=== PATIENT | female | born 1945 | race Caucasian/White ===

== ENCOUNTER 2018-11-18 16:59 | Emergency (ER) | payer MEDICARE ==
[~2018-11-18] VITALS: Ht 152.4 cm; Wt 48.6 kg
[~2018-11-18 16:59] MED LIST: ASPI-611 PO; CA C1TAB86 PO; CHOL200013 PO; GLIP5TAB13 PO; HYDR-4353 PO; LANTUS SQ; LISI-604 PO; METF500T7 PO; METO25TA6 PO; SIMV10TA6 PO
[2018-11-18] MEDS ORDERED: normal saline 1000ML IV soln IVB ONE ×2 (17:40)
[2018-11-18] MEDS ORDERED: insulin Lispro (HumaLOG) vial - multi-dose SQ SCH (17:40)
[2018-11-18 18:09] LABS: CLARITY,URINE SLIGHTLY CLOUDY (Clear); COLOR,URINE STRAW (Yellow); GLUCOSE, URINE >=1000 mg/dl (Neg); KETONES,URINE 15 mg/dl (Neg); LEUKOCYTE ESTERASE ,URINE NEGATIVE (Neg); NITRITES, URINE NEGATIVE (Neg); OCCULT BLOOD,URINE TRACE-INTACT (Neg); PH,URINE 5.5 (4.8-8.0); PROTEIN,URINE TRACE mg/dl (Neg); UROBILINOGEN,URINE 0.2 E.U/dL (0.2-1.0)
[2018-11-18 18:12] LABS: BASOPHILS # (AUTO) 0.1 X10'3 (0-0.2); BASOPHILS % (AUTO) 0.9 % (0-1); EOSINOPHILS # (AUTO) 0.1 X10'3 (0-0.9); EOSINOPHILS % (AUTO) 1.3 % (0-6); HEMOGLOBIN 13.8 g/dl (12.0-16.0); LYMPHOCYTES # (AUTO) 1.5 X10'3 (1.1-4.8); LYMPHOCYTES % (AUTO) 20.7 % (21-51); MEAN CORPUSCULAR HGB CONC 33.6 % (33.0-36.5); MEAN CORPUSCULAR VOLUME 92.3 FL (78-98); MEAN PLATELET VOLUME 11.3 FL (7.4-10.4); MONOCYTES # (AUTO) 0.5 X10'3 (0-0.9); MONOCYTES % (AUTO) 6.1 % (2-12); NEUTROPHILS # (AUTO) 5.2 X10'3 (1.8-7.7); PLATELET COUNT 310 X10'3 (140-440); RED BLOOD COUNT 4.44 X10'6 (4.20-5.60); WHITE BLOOD COUNT 7.4 X10'3 (4.5-11.0)
[2018-11-18 18:15] LABS: UA COLLECTION TYPE NON-SPECIFIED
[2018-11-18 18:17] LABS: MUCUS STRANDS NONE SEEN /LPF (Neg); SQUAMOUS EPITHELIAL CELL,UR FEW /LPF (FEW); WBC CLUMPS,URINE MANY /HPF (NEGATIVE)
[2018-11-18 18:18] LABS: BACTERIA,URINE 4+ /HPF (Neg); RBC,URINE NONE SEEN /HPF (0-2); WBC,URINE 30-50 /HPF (0-4)
[2018-11-18 18:29] LABS: ALANINE AMINOTRANSFERASE 20 U/L (12-78); ALBUMIN 4.6 G/DL (3.4-5.0); ALKALINE PHOSPHATASE 95 IU/L (46-116); ANION GAP 19 (8-16); ASPARTATE AMINO TRANSFERASE 13 U/L (10-37); BILIRUBIN,TOTAL 0.4 MG/DL (0.1-1.0); BLOOD UREA NITROGEN 33 MG/DL (7-18); BUN/CREATININE RATIO 22.6 (6.6-38.0); CALCIUM 9.6 MG/DL (8.5-10.1); CHLORIDE 90 MMOL/L (99-107); CREATININE 1.46 MG/DL (0.40-0.90); POTASSIUM 4.4 MMOL/L (3.5-5.1); SODIUM 130 MMOL/L (135-145); TOTAL CARBON DIOXIDE 21.5 MMOL/L (24-32); eGFR 35 ML/MIN
[2018-11-18] MEDS ORDERED: CefTRIAXone/D5W-Rocephin 1gm 50 ML IV ONE (18:40)
[2018-11-18 18:48] LABS: GLUCOSE 576 MG/DL (70-104)
[2018-11-18] MEDS ORDERED: CEPH500C5 PO (19:02)
[2018-11-18] MEDS ORDERED: INSU100I5 SQ (19:02)
--- NOTE | 2018-11-18 19:08 | NUR ---
Dr. Carrillo notified of glucometer reading. She states we can give IV abx and discharge her with her insulin as she is not on sliding scale and the 8 units is what she normally takes. She will be instructed to find PCP and closely monitor her blood glucose levels.
[2018-11-18 19:30] VITALS: BP 171/70
== END 2018-11-18 19:42 | disposition home or self-care (01) ==
LOC: ER 17:00
DX: E11.65 Type 2 diabetes mellitus with hyperglycemia (principal); N39.0 Urinary tract infection, site not specified; I25.10 Atherosclerotic heart disease of native coronary artery without angina pectoris; E78.00 Pure hypercholesterolemia, unspecified; I10 Essential (primary) hypertension; Z95.1 Presence of aortocoronary bypass graft; Z87.891 Personal history of nicotine dependence; Z79.82 Long term (current) use of aspirin; Z79.899 Other long term (current) drug therapy; Z79.4 Long term (current) use of insulin
CPT/HCPCS: 36415; 80053; 81001; 82948; 85025; 87077; 87088; 87186; 93005; 96361; 96365; 96372; 99284; J0696; J7030

== ENCOUNTER 2020-06-28 03:29 | Emergency (ER) | payer MEDICARE ==
[~2020-06-28] VITALS: Ht 152.4 cm; Wt 52.4 kg
[~2020-06-28 03:29] MED LIST changes: +INSU100I5 SQ; +METF-900 PO; -METF500T7 PO; -SIMV10TA6 PO; +SIMV10TA98 PO
[2020-06-28 03:32] VITALS: BP 167/66
--- NOTE | 2020-06-28 03:47 | NUR ---
NELLIE, PHONE NUMBER [phone]
[2020-06-28] MEDS ORDERED: loperamide 2mg capsule PO ONE (03:55)
--- NOTE | 2020-06-28 04:35 | NUR ---
Pt , Sravan called and stated that pt has demetia and he was concerned that she was not able to communicate her symptoms. stated that, as well as hyperglycemia, patient has been complaining of pain and difficulty urinating. Urine collected and sent to the lab.
[2020-06-28 04:45] LABS: CLARITY,URINE CLOUDY (Clear); COLOR,URINE YELLOW (Yellow); GLUCOSE, URINE >=1000 mg/dl (Neg); KETONES,URINE 15 mg/dl (Neg); LEUKOCYTE ESTERASE ,URINE SMALL (Neg); NITRITES, URINE NEGATIVE (Neg); OCCULT BLOOD,URINE LARGE (Neg); PH,URINE 5.5 (4.8-8.0); PROTEIN,URINE 100 mg/dl (Neg); UROBILINOGEN,URINE 0.2 E.U/dL (0.2-1.0)
[2020-06-28 04:51] LABS: UA COLLECTION TYPE CLN CATCH MIDSTREAM
[2020-06-28 04:52] LABS: AMORPHOUS URATES 2+; BACTERIA,URINE 1+ /HPF (Neg); MUCUS STRANDS FEW /LPF (Neg); RBC,URINE 20-50 /HPF (0-2); SQUAMOUS EPITHELIAL CELL,UR FEW /LPF (FEW); WBC,URINE 20-30 /HPF (0-4)
[2020-06-28] MEDS ORDERED: CEPH250T PO (05:02)
[2020-06-28] MEDS ORDERED: cephalexin 250mg capsule PO ONE (05:05)
== END 2020-06-28 05:22 | disposition home or self-care (01) ==
LOC: ER 03:30
DX: E11.65 Type 2 diabetes mellitus with hyperglycemia (principal); N39.0 Urinary tract infection, site not specified; R19.7 Diarrhea, unspecified; I25.10 Atherosclerotic heart disease of native coronary artery without angina pectoris; E78.00 Pure hypercholesterolemia, unspecified; I10 Essential (primary) hypertension; F03.90 Unspecified dementia, unspecified severity, without behavioral disturbance, psychotic disturbance, mood disturbance, and anxiety; Z95.1 Presence of aortocoronary bypass graft; Z79.82 Long term (current) use of aspirin; Z79.4 Long term (current) use of insulin; Z79.899 Other long term (current) drug therapy
CPT/HCPCS: 81001; 82948; 87077; 87088; 87186; 99283

== ENCOUNTER 2020-11-17 07:12 | Emergency (ER) | payer MEDICARE ==
[~2020-11-17] VITALS: Ht 152.4 cm; Wt 54.6 kg
[2020-11-17 07:37] VITALS: BP 183/65
[2020-11-17] MEDS ORDERED: TETanus/Pertussis (Acell)/Diphther VAC/PF (Tdap-Adult) 0.5ml syringe IMVAC ONE (08:40)
[2020-11-17] MEDS ORDERED: DOXYCYCLINE 100MG CAPSULE PO STA (08:40)
[2020-11-17] MEDS ORDERED: DOXY100C2 PO (11:05)
== END 2020-11-17 11:39 | disposition home or self-care (01) ==
LOC: ER 07:13
DX: E11.621 Type 2 diabetes mellitus with foot ulcer (principal); L97.529 Non-pressure chronic ulcer of other part of left foot with unspecified severity; I73.9 Peripheral vascular disease, unspecified; I25.10 Atherosclerotic heart disease of native coronary artery without angina pectoris; E78.00 Pure hypercholesterolemia, unspecified; I10 Essential (primary) hypertension; Z87.891 Personal history of nicotine dependence; Z95.1 Presence of aortocoronary bypass graft; Z79.82 Long term (current) use of aspirin; Z79.4 Long term (current) use of insulin; Z79.899 Other long term (current) drug therapy
CPT/HCPCS: 73660; 87070; 87077; 87186; 90471; 90715; 93922; 93926; 99285

== ENCOUNTER 2022-12-29 12:37 | Emergency (ER) | payer MEDICARE ==
[~2022-12-29] VITALS: Ht 152.4 cm; Wt 54.5 kg
[~2022-12-29 12:37] MED LIST changes: -LISI-604 PO; +LISI5TAB22 PO; +LOP25T PO; -METO25TA6 PO
[2022-12-29 13:00] VITALS: BP 173/58
--- NOTE | 2022-12-29 13:00 | NUR ---
PT PEED PRIOR TO ARRIVAL.
[2022-12-29 14:46] LABS: CLARITY,URINE CLOUDY (Clear); COLOR,URINE YELLOW (Yellow); GLUCOSE, URINE >=1000 mg/dl (Neg); KETONES,URINE NEGATIVE (Neg); LEUKOCYTE ESTERASE ,URINE TRACE (Neg); NITRITES, URINE POSITIVE (Neg); OCCULT BLOOD,URINE TRACE-INTACT (Neg); PH,URINE 6.5 (4.8-8.0); PROTEIN,URINE 100 mg/dl (Neg); UROBILINOGEN,URINE 0.2 E.U/dL (0.2-1.0)
[2022-12-29 14:50] LABS: UA COLLECTION TYPE CLN CATCH MIDSTREAM
[2022-12-29 14:55] LABS: BACTERIA,URINE 3+ /HPF (Neg); SQUAMOUS EPITHELIAL CELL,UR MODERATE /LPF (FEW); WBC CLUMPS,URINE MANY /HPF (NEGATIVE); WBC,URINE 20-30 /HPF (0-4)
[2022-12-29 14:56] LABS: RBC,URINE 0-2 /HPF (0-2)
[2022-12-29] MEDS ORDERED: LEVO750T68 PO (15:18)
== END 2022-12-29 15:34 | disposition home or self-care (01) ==
LOC: ER 12:37
DX: N10 Acute pyelonephritis (principal); I10 Essential (primary) hypertension; E78.00 Pure hypercholesterolemia, unspecified; E11.9 Type 2 diabetes mellitus without complications
CPT/HCPCS: 81001; 87077; 87088; 87186; 99283

== ENCOUNTER 2023-01-03 07:23 | Emergency (ER) | payer MEDICARE ==
[~2023-01-03] VITALS: Ht 152.4 cm; Wt 53.0 kg
[~2023-01-03 07:23] MED LIST changes: +LEVO750T68 PO
[2023-01-03 08:09] LABS: CLARITY,URINE CLEAR (Clear); COLOR,URINE YELLOW (Yellow); GLUCOSE, URINE NEGATIVE (Neg); KETONES,URINE NEGATIVE (Neg); LEUKOCYTE ESTERASE ,URINE NEGATIVE (Neg); NITRITES, URINE NEGATIVE (Neg); OCCULT BLOOD,URINE NEGATIVE (Neg); PROTEIN,URINE TRACE mg/dl (Neg); UROBILINOGEN,URINE 0.2 E.U/dL (0.2-1.0)
[2023-01-03 08:11] LABS: UA COLLECTION TYPE CLN CATCH MIDSTREAM
[2023-01-03 08:19] LABS: MUCUS STRANDS NONE SEEN /LPF (Neg); SQUAMOUS EPITHELIAL CELL,UR MODERATE /LPF (FEW); TRANSITIONAL EPI CELLS,URINE FEW /HPF
[2023-01-03 08:21] LABS: BACTERIA,URINE NONE SEEN /HPF (Neg); RBC,URINE 0-2 /HPF (0-2); WBC,URINE 0-4 /HPF (0-4)
[2023-01-03 09:14] LABS: BASOPHILS # (AUTO) 0.1 X10'3 (0-0.2); BASOPHILS % (AUTO) 1.2 % (0-1); EOSINOPHILS # (AUTO) 0.1 X10'3 (0-0.9); HEMATOCRIT 32.8 % (35.0-45.0); HEMOGLOBIN 11.2 g/dl (12.0-16.0); LYMPHOCYTES # (AUTO) 1.3 X10'3 (1.1-4.8); LYMPHOCYTES % (AUTO) 18.6 % (21-51); MEAN CORPUSCULAR HEMOGLOBIN 31.8 PG (27.0-31.0); MEAN CORPUSCULAR HGB CONC 34.2 g/dL (33.0-36.5); MEAN CORPUSCULAR VOLUME 93.2 FL (78-98); MEAN PLATELET VOLUME 10.1 FL (7.4-10.4); MONOCYTES # (AUTO) 0.5 X10'3 (0-0.9); MONOCYTES % (AUTO) 7.5 % (2-12); NEUTROPHILS # (AUTO) 5.1 X10'3 (1.8-7.7); NEUTROPHILS % (AUTO) 70.7 % (42-75); PLATELET COUNT 221 X10'3 (140-440); RED BLOOD COUNT 3.52 X10'6 (4.20-5.60); RED CELL DISTRIBUTION WIDTH 12.7 % (11.5-14.5); WHITE BLOOD COUNT 7.3 X10'3 (4.5-11.0)
[2023-01-03] MEDS ORDERED: iohexol 300mg/ml 100ml inj. ONE (09:17)
[2023-01-03 09:48] LABS: ALANINE AMINOTRANSFERASE 16 U/L (12-78); ALBUMIN/GLOBULIN RATIO 1.1 (1.1-1.5); ALKALINE PHOSPHATASE 63 IU/L (46-116); ASPARTATE AMINO TRANSFERASE 19 U/L (10-37); BILIRUBIN,TOTAL 0.3 MG/DL (0.1-1.0); BLOOD UREA NITROGEN 29 MG/DL (7-18); BUN/CREATININE RATIO 21.8 (6.6-38.0); CALCIUM 8.8 MG/DL (8.5-10.1); CREATININE 1.33 MG/DL (0.40-0.90); GLUCOSE 127 MG/DL (70-104); TOTAL PROTEIN 7.5 G/DL (6.4-8.2); eGFR 39 ML/MIN
[2023-01-03 10:22] LABS: ANION GAP 11 (8-16); CHLORIDE 103 MMOL/L (99-107); POTASSIUM 3.9 MMOL/L (3.5-5.1); SODIUM 139 MMOL/L (135-145); TOTAL CARBON DIOXIDE 24.9 MMOL/L (24-32)
[2023-01-03] MEDS ORDERED: POLY119P2 PO (13:13)
[2023-01-03 13:27] VITALS: BP 181/70
== END 2023-01-03 13:24 | disposition home or self-care (01) ==
LOC: ER 07:23
DX: K59.00 Constipation, unspecified (principal); R10.32 Left lower quadrant pain; E78.00 Pure hypercholesterolemia, unspecified; I10 Essential (primary) hypertension; E11.9 Type 2 diabetes mellitus without complications; Z87.891 Personal history of nicotine dependence
CPT/HCPCS: 36415; 74177; 80053; 81001; 85025; 99285; J3490; Q9967

== ENCOUNTER 2025-03-23 13:30 | Inpatient (IN) | payer MEDICARE ==
[~2025-03-23] VITALS: Ht 152.4 cm; Wt 54.4 kg
[~2025-03-23 13:30] MED LIST changes: -GLIP5TAB13 PO; +GLIP5TAB23 PO; -LEVO750T68 PO; +POLY119P2 PO
[2025-03-23 19:20] VITALS: BP 97/46; PULSE 85; RESP 17; TEMP 97.5; O2SAT 93
[2025-03-23] MEDS ORDERED: magnesium hydroxide 30ml (MOM) UD suspension PO PRN (20:30)
[2025-03-23] MEDS ORDERED: potassium Cl 40MEQ/1/2NS 520ml 520 ML IV PRN (20:30)
[2025-03-23] MEDS ORDERED: potassium Cl 20 mEq SR tablet PO PRN (20:30)
[2025-03-23] MEDS ORDERED: acetaminophen 325mg tablet PO PRN (20:30)
[2025-03-23] MEDS ORDERED: mag hydrox/Alum hydrox/simeth 30ml oral suspension PO PRN (20:30)
[2025-03-23] MEDS ORDERED: ondansetron/PF 4mg/2ml inj IV PRN (20:30)
[2025-03-23] MEDS ORDERED: magnesium sulf-water 4G/100mL 100 ML IV PRN (20:30)
[2025-03-23] MEDS ORDERED: magnesium Cl slow-release 64mg tablet PO PRN (20:30)
[2025-03-23] MEDS: HEPARIN DRIP-CARDIAC**PHARMACIST-TO-DOSE IV ONE (20:30)
[2025-03-23] MEDS ORDERED: ATOR10TA70 PO (20:44)
[2025-03-23] MEDS ORDERED: POTA10CA95 PO (20:44)
[2025-03-23] MEDS ORDERED: METO-384 PO (20:44)
[2025-03-23] MEDS ORDERED: AMLO10TA13 PO (20:44)
[2025-03-23] MEDS ORDERED: MEMA5TAB15 PO (20:44)
[2025-03-23] MEDS ORDERED: FURO20TA4 PO (20:44)
[2025-03-23] MEDS ORDERED: LISI40TA13 PO (20:44)
[2025-03-23] MEDS ORDERED: CLOP75TA34 PO (20:44)
[2025-03-23] MEDS ORDERED: DEXTROSE 15 GM of carb/4 tabs (each vial/BOTTLE has 4 tablets) PO PRN ×2 (20:50)
[2025-03-23] MEDS ORDERED: glucagon, human recombinant 1mg kit SUBCUT PRN (20:50)
[2025-03-23] MEDS ORDERED: heparin 10,000 units/1 ML INJ IV ONE (20:55)
[2025-03-23 21:19] LABS: BASOPHILS # (AUTO) 0.1 X10'3 (0-0.2); BASOPHILS % (AUTO) 0.3 % (0-1); EOSINOPHILS % (AUTO) 0.1 % (0-6); HEMATOCRIT 22.7 % (35.0-45.0); HEMOGLOBIN 7.5 g/dl (12.0-16.0); LYMPHOCYTES # (AUTO) 1.2 X10'3 (1.1-4.8); LYMPHOCYTES % (AUTO) 3.6 % (21-51); MEAN CORPUSCULAR HEMOGLOBIN 29.5 PG (27.0-31.0); MEAN CORPUSCULAR HGB CONC 33.1 g/dL (33.0-36.5); MEAN CORPUSCULAR VOLUME 89.1 FL (78-98); MEAN PLATELET VOLUME 9.1 FL (7.4-10.4); MONOCYTES # (AUTO) 1.5 X10'3 (0-0.9); MONOCYTES % (AUTO) 4.6 % (2-12); NEUTROPHILS # (AUTO) 30.4 X10'3 (1.8-7.7); NEUTROPHILS % (AUTO) 91.4 % (42-75); PLATELET COUNT 380 X10'3 (140-440); RED BLOOD COUNT 2.55 X10'6 (4.20-5.60); RED CELL DISTRIBUTION WIDTH 14.8 % (11.5-14.5)
--- NOTE | 2025-03-23 21:24 | HISTORY AND PHYSICAL-Residence ---
History & Physical Providers to CC Resident Creating Document: EBONY LOGAN, RES ~ History of Present Illness Primary Medical Doctor: tomás marinelli Reason for Admit\Complaint: Acute limb ischemia History of Present Illness A 79-year-old female with past medical history of dementia, hypertension, type 1 diabetes mellitus, CAD s/p CABG, PAD s/p right LE stenting, was transferred from [facility] for the management of acute right lower limb ischemia. The patient was admitted on 03/09/2025 after the patient sustained a fall. She was dizzy, confused and also had vomiting. Her CT head was negative. She was treated for sepsis, hypoxemic respiratory failure and community-acquired pneumonia. The patient received eight days of cefepime 1 g IV daily, 9 days of doxycycline 100 mg twice daily p.o., four days of vancomycin 500 mg IV daily. She was receiving ceftriaxone and metronidazole before she was transferred to [facility]. The patient also underwent thoracentesis with removal of 300 mL of serous fluid. The patient also had worsening kidney function and required couple of days of dialysis from 03/13/2025 to 03/15/2025. On 03/17/2025, the patient started complaining of severe right foot pain and developed acute limb ischemia. Arterial duplex of right lower extremity showed no flow in anterior tibial artery, posterior tibial artery, dorsalis pedis and peroneal arteries. Vascular surgeon, Dr. Wynn was consulted and the patient underwent IR angiogram on 03/21/2025 on his recommendations. It showed afeline, small caliber abdominal aorta, similar in size to superior mesenteric artery. No significant iliac inflow disease. Both profunda femoris arteries are patent. Single vessel right calf runoff via peroneal artery, two vessel left calf runoff via peroneal and anterior tibial arteries. Dr. Vasquez was initially considering aortic surgery and requested Lexiscan which showed moderate anterior and anterior septal ischemia. After discussion with family, plan was made to transfer the patient to [facility] for attempting balloon angioplasty of aorta by Dr. Dhillon. Allergies: Coded Allergies: No Known Allergies (Unverified , 05/27/15) Home Medications Home Medications Active Miralax (Polyethylene Glycol 3350) 119 Gm Powder 17 Gm PO DAILY 5 Days dissolve in water Humalog Mix 75-25 Kwikpen (Insulin Npl/Insulin Lispro) 100 Unit/1 Ml Insuln.pen 1 Units SQ BID [place] 10-325 Tablet (Acetaminophen/Hydrocodone Bitart) 1 Each Tablet 1 Tab PO Q6H Reported Clopidogrel (Clopidogrel Bisulfate) 75 Mg Tablet 1 Tab PO DAILY Potassium Chloride* (Potassium Chloride) 10 Meq Capsule.sa 1 Cap PO DAILY Furosemide 20 Mg Tablet 1 Tab PO DAILY Metoprolol Succinate 50 Mg Tab.sr.24h 1 Tab PO DAILY Atorvastatin Calcium 10 Mg Tablet 1 Tab PO DAILY Memantine HCl 5 Mg Tablet 1 Tab PO BID Amlodipine Besylate 10 Mg Tablet 1 Tab PO DAILY Lisinopril* (Lisinopril) 40 Mg Tablet 1 Tab PO DAILY Romario Mag Zinc + D3 Tablet (Ca Carb/Vit D3/Mag Ox/Zn Oxide) 1 Each Tablet 1 Each PO DAILY Lopressor tablet* (Metoprolol Tartrate) 25 Mg Tablet 1 Tablet PO BID Lisinopril 5 Mg Tablet 1 Tablet PO DAILY D3-2000 (Cholecalciferol (Vitamin D3)) 2,000 Unit Capsule 1,000 Units PO DAILY Aspir 81 (Aspirin) 81 Mg Tablet.dr 1 Tablet PO DAILY Simvastatin 10 Mg Tablet 1 Tablet PO HS Glipizide 5 Mg Tablet 1 Tablet PO BID Metformin ER* (Metformin HCl) 500 Mg Tab.sr.24h 2 Tablet PO BID Lantus Solostar (Insulin Glargine,Hum.rec.anlog) 300 Unit/3 Ml Insuln.pen 13 Unit SQ DAILY Past Medical History Past Medical History Dementia CAD s/p CABG 10 years ago Type 1 diabetes mellitus Hypertension PAD s/p right lower extremity stenting Past Surgical History Surgical History Comment CABG Past Social History Social History Comment The patient lives in her house with family. Ambulates independently without assistance. Denies smoking, alcohol and illicit drug abuse. Quit smoking 10 years back. Smoked for about 10 years half to one pack of cigarettes per day. Alcohol Use: None Drug Use: None Lives with: Spouse Lives In: Home ROS ROS Reviewed in full. Negative except for pertinent positives in HPI. Exam Vitals: Vital Signs Date Time Temp Pulse Resp B/P (MAP) Pulse Ox O2 Delivery O2 Flow Rate FiO2 03/23/25 19:23 86 General: Elderly female, alert and oriented, not in acute distress Head: Normocephalic with an atraumatic Eyes: Pupils- 3mm, reacting to light, conjunctiva- anicteric Nose and throat: No polyps, septum- normal, no mucosal ulcers Neck: Supple, no lymphadenopathy, no carotid bruit Respiratory: No use of accessory muscles of respiration, Bilateral normal vesiscular breath sounds heard. No wheeze, rhochi or creps Cardiac: S1-S2 heard, rhythm regular, systolic murmur at the mitral region Abdomen: non distended, no tenderness, no organomegaly, bowel sounds - heard Extremities: right foot cold and tender to touch, peripheral pulses - not felt in right foot Skin: warm and dry, no rash, no purpura Neuro: No focal deficit, gross cranial nerve exam - normal Diagnostic Data Last Recorded Lab Results: 03/24/25 0309 03/24/25 0309 Diagnostic Data: Laboratory Tests Test 03/23/25 20:58 Coagulation Comments Advance Care Planning Advanced Care plannin - 30 Minutes Additional Plan The patient is a 79 year old female who was transferred from [facility] for the management of acute limb ischemia. Plan: Atrial fibrillation with RVR The patient is currently in the ICU. Received 150 mg IV amiodarone. Currently on the drip. Sepsis Likely secondary to community-acquired pneumonia UTI Patient currently on Levophed drip. WBC trended up from 12.91 on 03/09/2025 to 33.2 today. Elevated procalcitonin and lactic acid. The patient received eight days of cefepime 1 g IV daily, nine days of doxycycline 100 mg twice daily p.o., four days of vancomycin 500 mg IV daily. Was receiving ceftriaxone 2 g daily IV and metronidazole 500 mg IV thrice daily before she was discharged from [facility]. Both started on 03/21/2025. Continue ceftriaxone. Rule out C diff. Patient complained of loose stools. Acute on chronic kidney failure Patient underwent dialysis for couple of days at [facility]. Currently GFR is 15, creatinine 3.01, BUN 88. Consider nephrology consultation for possible dialysis. Hyperphosphatemia The patient was receiving calcium acetate 667 mg thrice daily with meals. Continue with the same. CHF The patient underwent thoracentesis with removal of 300 mL of serous fluid on 03/12/2025. Echocardiogram showed LVEF of 55-60%. Mild AR, [id number] MR, [id number] TR. Code Status: Full code DVT Prophylaxis: Heparin PT: Ordered Prognosis: Guarded Disposition: Continue care in the ICU. Ebony Logan MD Internal Medicine Resident PGY-1 Addendum Pt was seen and examinged with the resident via a hipaa compliant [address] way AV platfomr Pt went into afib rvr with abberancy. Started amio but bp soft, so I moved her to [facility] icu. genrle fluids and pressors. Cont the amio Laboratory Tests Test 03/23/25 19:19 03/23/25 20:58 03/23/25 21:46 03/23/25 22:43 Glucometer 143 mg/dl (70-104) 173 mg/dl (70-104) White Blood Count 33.2 X10'3 (4.5-11.0) Red Blood Count 2.55 X10'6 (4.20-5.60) Hemoglobin 7.5 g/dl (12.0-16.0) Hematocrit 22.7 % (35.0-45.0) Mean Corpuscular Volume 89.1 FL (78-98) Mean Corpuscular Hemoglobin 29.5 PG (27.0-31.0) Mean Corpuscular Hemoglobin Concent 33.1 g/dL (33.0-36.5) Red Cell Distribution Width 14.8 % (11.5-14.5) Platelet Count 380 X10'3 (140-440) Mean Platelet Volume 9.1 FL (7.4-10.4) Neutrophils (%) (Auto) 91.4 % (42-75) Lymphocytes (%) (Auto) 3.6 % (21-51) Monocytes (%) (Auto) 4.6 % (2-12) Eosinophils (%) (Auto) 0.1 % (0-6) Basophils (%) (Auto) 0.3 % (0-1) Neutrophils # (Auto) 30.4 X10'3 (1.8-7.7) Lymphocytes # (Auto) 1.2 X10'3 (1.1-4.8) Monocytes # (Auto) 1.5 X10'3 (0-0.9) Eosinophils # (Auto) 0.0 X10'3 (0-0.9) Basophils # (Auto) 0.1 X10'3 (0-0.2) CBC Comment Differential Total Cells Counted 100 Neutrophils % (Manual) 96.0 % (42-75) Lymphocytes % (Manual) 3.0 % (21-51) Monocytes % (Manual) 1.0 % (2-12) Platelet Estimate Normal Red Blood Cell Morphology Perf Basophilic Stippling Anisocytosis 1+ Prothrombin Time 16.5 SECONDS (9.0-12.0) INR International Normalized Ratio 1.7 INR Activated Partial Thromboplast Time 69 SECONDS (22-32) Coagulation Comments Sodium Level 130 MMOL/L (135-145) Potassium Level 3.5 MMOL/L (3.5-5.1) Chloride Level 95 MMOL/L (99-107) Carbon Dioxide Level 21.5 MMOL/L (24-32) Anion Gap 14 (8-16) Blood Urea Nitrogen 88 MG/DL (7-18) Creatinine 3.01 MG/DL (0.40-0.90) Estimated GFR/1.73 m2 15 ML/MIN BUN/Creatinine Ratio 29.2 (10.0-20.0) Glucose Level 166 MG/DL (70-104) Hemoglobin A1c 7.9 % (4.5-6.2) Lactic Acid Level 3.8 MMOL/L (0.4-2.0) 4.0 MMOL/L (0.4-2.0) Calcium Level 7.4 MG/DL (8.5-10.1) Phosphorus Level 5.2 MG/DL (2.3-4.5) Magnesium Level 1.4 MG/DL (1.5-2.4) Total Bilirubin 0.4 MG/DL (0.1-1.0) Aspartate Amino Transf (AST/SGOT) 22 U/L (10-37) Alanine Aminotransferase (ALT/SGPT) 100 U/L (12-78) Alkaline Phosphatase 220 IU/L (46-116) Pro-B-Type Natriuretic Peptide > 95989 PG/ML (0-450) Total Protein 5.9 G/DL (6.4-8.2) Albumin 1.9 G/DL (3.4-5.0) Globulin 4.0 G/DL (2.7-4.3) Albumin/Globulin Ratio 0.5 (1.1-1.5) Procalcitonin 2.07 NG/ML (0-0.5) Chemistry Comments Test 03/24/25 01:28 03/24/25 03:09 03/24/25 03:45 Urine Specimen Description Hendrickson cath Urine Color Yellow (Yellow) Urine Clarity Clear (Clear) Urine pH 6.0 (4.8-8.0) Urine Specific Parker 1.015 (1.001-1.035) Urine Protein 30 mg/dl (Neg) Urine Glucose (UA) Negative mg/dl (Neg) Urine Ketones Negative mg/dl (Neg) Urine Occult Blood Moderate (Neg) Urine Nitrite Negative (Neg) Urine Bilirubin Negative (Neg) Urine Urobilinogen 0.2 E.U/dL (0.2-1.0) Urine Leukocyte Esterase Small (Neg) Urine RBC 10-20 /HPF (0-2) Urine WBC 20-30 /HPF (0-4) Urine WBC Clumps Moderate /HPF (NEGATIVE) Urine Squamous Epithelial Cells None seen /LPF (FEW) Urine Bacteria 2+ /HPF (Neg) Urine Fine Granular Casts 10-30 /LPF (NEGATIVE) Urine Yeast Moderate /HPF (NEGATIVE) Urine Culture Indicated Indicated Volume Urine Centrifuged 10 ml Urine Comment White Blood Count 35.9 X10'3 (4.5-11.0) Red Blood Count 2.55 X10'6 (4.20-5.60) Hemoglobin 7.5 g/dl (12.0-16.0) Hematocrit 22.5 % (35.0-45.0) Mean Corpuscular Volume 88.3 FL (78-98) Mean Corpuscular Hemoglobin 29.3 PG (27.0-31.0) Mean Corpuscular Hemoglobin Concent 33.2 g/dL (33.0-36.5) Red Cell Distribution Width 14.7 % (11.5-14.5) Platelet Count 360 X10'3 (140-440) Mean Platelet Volume 8.9 FL (7.4-10.4) Neutrophils (%) (Auto) 91.4 % (42-75) Lymphocytes (%) (Auto) 3.2 % (21-51) Monocytes (%) (Auto) 5.1 % (2-12) Eosinophils (%) (Auto) 0.1 % (0-6) Basophils (%) (Auto) 0.2 % (0-1) Neutrophils # (Auto) 32.8 X10'3 (1.8-7.7) Lymphocytes # (Auto) 1.1 X10'3 (1.1-4.8) Monocytes # (Auto) 1.8 X10'3 (0-0.9) Eosinophils # (Auto) 0.0 X10'3 (0-0.9) Basophils # (Auto) 0.1 X10'3 (0-0.2) CBC Comment Differential Total Cells Counted 100 Neutrophils % (Manual) 94.0 % (42-75) Lymphocytes % (Manual) 3.0 % (21-51) Monocytes % (Manual) 3.0 % (2-12) Platelet Estimate Normal Red Blood Cell Morphology Perf Basophilic Stippling Anisocytosis 2+ Macrocytosis 1+ Zachery Cells 3+ Elliptocytes Few Prothrombin Time 17.7 SECONDS (9.0-12.0) INR International Normalized Ratio 1.8 INR Activated Partial Thromboplast Time 45 SECONDS (22-32) Coagulation Comments Sodium Level 130 MMOL/L (135-145) Potassium Level 3.5 MMOL/L (3.5-5.1) Chloride Level 96 MMOL/L (99-107) Carbon Dioxide Level 23.0 MMOL/L (24-32) Anion Gap 11 (8-16) Blood Urea Nitrogen 88 MG/DL (7-18) Creatinine 2.92 MG/DL (0.40-0.90) Estimated GFR/1.73 m2 16 ML/MIN BUN/Creatinine Ratio 30.1 (10.0-20.0) Glucose Level 157 MG/DL (70-104) Lactic Acid Level 1.8 MMOL/L (0.4-2.0) Calcium Level 7.4 MG/DL (8.5-10.1) Phosphorus Level 4.9 MG/DL (2.3-4.5) Magnesium Level 1.5 MG/DL (1.5-2.4) Total Bilirubin 0.4 MG/DL (0.1-1.0) Aspartate Amino Transf (AST/SGOT) 22 U/L (10-37) Alanine Aminotransferase (ALT/SGPT) 92 U/L (12-78) Alkaline Phosphatase 215 IU/L (46-116) Total Protein 5.8 G/DL (6.4-8.2) Albumin 1.8 G/DL (3.4-5.0) Globulin 4.0 G/DL (2.7-4.3) Albumin/Globulin Ratio 0.5 (1.1-1.5) Chemistry Comments Blood Gas Specimen Type Arterial Blood Gas Puncture Site Rb O2 Saturation 92.3 % (94.0-98.0) Arterial Blood pH (Temp corrected) 7.444 (7.350-7.450) Arterial Blood pCO2 (Temp correct) 25.1 mmHg (32.0-45.0) Arterial Blood pO2 (Temp corrected) 58.8 mmHg (83.0-108.0) Arterial Blood PO2/FiO2 Ratio 1.76 mmHg/% Arterial Blood HCO3 17.0 mmol/L (21.0-28.0) Arterial Blood Base Excess -6.5 mmol/L (-2.0-3.0) Arterial Blood Oxyhemoglobin 91.1 % (94.0-98.0) Arterial Blood Carboxyhemoglobin 1.0 % (0.5-1.5) Arterial Blood Methemoglobin 0.3 % (0.0-1.5) Arterial Blood Deoxyhemoglobin 7.6 % (0.0-5.0) Terry Test Modified Blood Gas Hemoglobin 8.0 G/dl (12.0-16.0) Blood Gas Temperature 35.9 Blood Gas Modality Nasal cannula FiO2 36.0 mmHg/% This consult was completed via a hipaa compliant telemedicine mechanism via direct camera video exchange with the patient and the nurse Critical care time was 60 minutes Date of Service: March 23, 2025 Billing Provider: AIXA HUNT MD, SOWMYA MANJARI, RES March 23, 2025 21:23 AIXA HUNT MD March 24, 2025 05:04
[2025-03-23 21:26] LABS: WHITE BLOOD COUNT 33.2 X10'3 (4.5-11.0)
[2025-03-23 21:31] LABS: APTT 69 SECONDS (22-32); INR 1.7 INR; PROTHROMBIN TIME 16.5 SECONDS (9.0-12.0)
[2025-03-23 21:43] LABS: ALANINE AMINOTRANSFERASE 100 U/L (12-78); ALBUMIN 1.9 G/DL (3.4-5.0); ALBUMIN/GLOBULIN RATIO 0.5 (1.1-1.5); ALKALINE PHOSPHATASE 220 IU/L (46-116); ANION GAP 14 (8-16); ASPARTATE AMINO TRANSFERASE 22 U/L (10-37); BILIRUBIN,TOTAL 0.4 MG/DL (0.1-1.0); BLOOD UREA NITROGEN 88 MG/DL (7-18); BUN/CREATININE RATIO 29.2 (10.0-20.0); CALCIUM 7.4 MG/DL (8.5-10.1); CHLORIDE 95 MMOL/L (99-107); CREATININE 3.01 MG/DL (0.40-0.90); GLUCOSE 166 MG/DL (70-104); MAGNESIUM 1.4 MG/DL (1.5-2.4); PHOSPHORUS 5.2 MG/DL (2.3-4.5); POTASSIUM 3.5 MMOL/L (3.5-5.1); SODIUM 130 MMOL/L (135-145); TOTAL CARBON DIOXIDE 21.5 MMOL/L (24-32); TOTAL PROTEIN 5.9 G/DL (6.4-8.2); eGFR 15 ML/MIN
[2025-03-23 21:44] LABS: PLATELET ESTIMATE NORMAL; TOTAL CELLS COUNTED 100
[2025-03-23 21:45] LABS: HEMOGLOBIN A1C 7.9 % (4.5-6.2)
[2025-03-23 21:46] LABS: ANISOCYTOSIS 1+
--- NOTE | 2025-03-23 21:50 | RADIOLOGY REPORT ---
Clinical History shortness of breath Comparison None Technique: One view Without Contrast RAOUL BURCIAGA, [id number] FINDINGS: Status post median sternotomy for CABG. Tortuous calcific aorta. The heart size is within normal li mits. Left hemidiaphragm is obscured suspicious for left lower lobe infiltrate. Pulmonary vascular congestion is identified bilaterally. Osteopenia is identified. No discrete osseous lesion is note d. IMPRESSION: Pulmonary vascular congestion. Osteopenia. Left lower lobe infiltrate obscuring left hemidiaphragm. This report was electronically signed by Philip Matias MD on 03/23/2025 9:48:15 PM.
[2025-03-23 22:00] VITALS: BP 111/64; PULSE 98; RESP 21; TEMP 97.3; O2SAT 98
[2025-03-23] MEDS: normal saline 1000ml 1,000 ML IV SCH (22:00)
[2025-03-23 22:07] LABS: PRO BRAIN NATRIURETIC PEPTIDE > 30000 PG/ML (0-450)
[2025-03-23] MEDS: heparin 25,000 UNIT/250ml bag 250 ML IV PRN (22:14)
[2025-03-23] MEDS: INSULIN LISPRO 100 UNIT/ML INSULN.PEN MULTI-DOSE SQ SCH (22:17)
[2025-03-23] MEDS: insulin glargine (Lantus) pen - multi-dose SQ SCH (22:18)
[2025-03-23] MEDS: MESSAGE TO NURSING IV ONE (23:15)
[2025-03-23] MEDS: HEPARIN DRIP INITAL BOLUS --- DO NOT GIVE/ORDER MC ONE (23:20)
[2025-03-24] VITALS (21 sets, daily range): BP systolic 89–148; BP diastolic 31–98; PULSE 79–154; RESP 13–24; O2SAT 87–99
[2025-03-24 01:52] LABS: BILIRUBIN,URINE NEGATIVE (Neg); CLARITY,URINE CLEAR (Clear); COLOR,URINE YELLOW (Yellow); GLUCOSE, URINE NEGATIVE (Neg); KETONES,URINE NEGATIVE (Neg); LEUKOCYTE ESTERASE ,URINE SMALL (Neg); NITRITES, URINE NEGATIVE (Neg); OCCULT BLOOD,URINE MODERATE (Neg); PROTEIN,URINE 30 mg/dl (Neg); UROBILINOGEN,URINE 0.2 E.U/dL (0.2-1.0)
[2025-03-24 01:54] LABS: UA COLLECTION TYPE FOLEY CATH
[2025-03-24 02:02] LABS: BACTERIA,URINE 2+ /HPF (Neg); SQUAMOUS EPITHELIAL CELL,UR NONE SEEN /LPF (FEW); WBC CLUMPS,URINE MODERATE /HPF (NEGATIVE); WBC,URINE 20-30 /HPF (0-4)
[2025-03-24 02:03] LABS: YEAST MODERATE /HPF (NEGATIVE)
--- NOTE | 2025-03-24 02:04 | ELECTROCARDIOGRAPH REPORT ---
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 Renea Dhillon Measurements Intervals [place] Rate: 167 P: 93 IN: 71 QRS: 257 QRSD: 153 T: 117 QT: 347 QTc: 579 Interpretive Statements Extreme tachycardia with wide complex, no further rhythm analysis attempted Electronically Signed On 03-24-2025 9:09:[address] Renea Dhillon Please click the below link to view image of tracing.
[2025-03-24] MEDS: amiodarone 150mg/dext, iso-os 100 ML IV ONE ×2 (02:11→02:15)
[2025-03-24] MEDS: NORepinephrine 8mg/ 250ml NS 250 ML IV ONE (02:35)
[2025-03-24] MEDS: amiodarone/D5 360MG/200ML BAG 200 ML IV SCH (02:45)
[2025-03-24 03:23] LABS: BASOPHILS # (AUTO) 0.1 X10'3 (0-0.2); BASOPHILS % (AUTO) 0.2 % (0-1); EOSINOPHILS % (AUTO) 0.1 % (0-6); HEMATOCRIT 22.5 % (35.0-45.0); HEMOGLOBIN 7.5 g/dl (12.0-16.0); LYMPHOCYTES # (AUTO) 1.1 X10'3 (1.1-4.8); LYMPHOCYTES % (AUTO) 3.2 % (21-51); MEAN CORPUSCULAR HEMOGLOBIN 29.3 PG (27.0-31.0); MEAN CORPUSCULAR HGB CONC 33.2 g/dL (33.0-36.5); MEAN CORPUSCULAR VOLUME 88.3 FL (78-98); MEAN PLATELET VOLUME 8.9 FL (7.4-10.4); MONOCYTES # (AUTO) 1.8 X10'3 (0-0.9); MONOCYTES % (AUTO) 5.1 % (2-12); NEUTROPHILS # (AUTO) 32.8 X10'3 (1.8-7.7); NEUTROPHILS % (AUTO) 91.4 % (42-75); PLATELET COUNT 360 X10'3 (140-440); RED BLOOD COUNT 2.55 X10'6 (4.20-5.60); RED CELL DISTRIBUTION WIDTH 14.7 % (11.5-14.5)
--- NOTE | 2025-03-24 03:27 | RADIOLOGY REPORT ---
CHEST RADIOGRAPH Indication: line placement Technique: One view Without Contrast RAOUL BURCIAGA, [id number] Comparison: DI CHEST,SINGLE VIEW on DOS: 03/23/25 FINDINGS: Lines and Tubes: Left central venous catheter tip in the SVC. Lungs: Worsening pulmonary edema. Pleura: No effusion. No pneumothorax. Cardiomediastinal contours: Cardiomegaly. Bones: No acute osseous abnormality. IMPRESSION: Worsening pulmonary edema.
[2025-03-24 03:30] LABS: WHITE BLOOD COUNT 35.9 X10'3 (4.5-11.0)
[2025-03-24 03:32] LABS: INR 1.8 INR; PROTHROMBIN TIME 17.7 SECONDS (9.0-12.0)
[2025-03-24 03:35] LABS: ALANINE AMINOTRANSFERASE 92 U/L (12-78); ALBUMIN 1.8 G/DL (3.4-5.0); ALBUMIN/GLOBULIN RATIO 0.5 (1.1-1.5); ALKALINE PHOSPHATASE 215 IU/L (46-116); ANION GAP 11 (8-16); ASPARTATE AMINO TRANSFERASE 22 U/L (10-37); BILIRUBIN,TOTAL 0.4 MG/DL (0.1-1.0); BLOOD UREA NITROGEN 88 MG/DL (7-18); BUN/CREATININE RATIO 30.1 (10.0-20.0); CALCIUM 7.4 MG/DL (8.5-10.1); CHLORIDE 96 MMOL/L (99-107); CREATININE 2.92 MG/DL (0.40-0.90); GLUCOSE 157 MG/DL (70-104); MAGNESIUM 1.5 MG/DL (1.5-2.4); PHOSPHORUS 4.9 MG/DL (2.3-4.5); POTASSIUM 3.5 MMOL/L (3.5-5.1); SODIUM 130 MMOL/L (135-145); TOTAL PROTEIN 5.8 G/DL (6.4-8.2); eGFR 16 ML/MIN
[2025-03-24 03:49] LABS: ABG BASE EXCESS -6.5 mmol/L (-2.0-3.0); ABG OXYGEN SATURATION 92.3 % (94.0-98.0); ABG PCO2 (T) 25.1 mmHg (32.0-45.0); ABG PH (T) 7.444 (7.350-7.450); ABG PO2 (T) 58.8 mmHg (83.0-108.0); ALLEN'S TEST Modified; FHHb 7.6 % (0.0-5.0); FMetHb 0.3 % (0.0-1.5); FO2Hb 91.1 % (94.0-98.0); MODE NASAL CANNULA; PATIENT TEMPERATURE 35.9
[2025-03-24] MEDS: albumin (Human) 5% 250ml 250 ML IV ONE ×2 (03:53→05:39)
[2025-03-24 03:54] LABS: ANISOCYTOSIS 2+; TOTAL CELLS COUNTED 100
[2025-03-24 03:55] LABS: BURR CELLS 3+; ELLIPTOCYTES FEW; PLATELET ESTIMATE NORMAL
[2025-03-24 04:58] LABS: APTT 45 SECONDS (22-32)
[2025-03-24] MEDS: MESSAGE TO NURSING IV ONE ×3 (05:05→19:57)
[2025-03-24] MEDS: metoprolol succinate 25mg (24-HOUR) SR. Tablet PO SCH (08:00)
[2025-03-24] MEDS: K and/or MAG REPLACEMENT MC SCH (08:00)
[2025-03-24] MEDS ORDERED: lisinopril 20mg tablet PO SCH (08:00)
[2025-03-24] MEDS: amLODIPine 5mg tablet PO SCH (08:00)
[2025-03-24] MEDS: INSULIN LISPRO 100 UNIT/ML INSULN.PEN MULTI-DOSE SQ SCH (09:00)
[2025-03-24] MEDS: aspirin 81mg, enteric-coated 1 TAB TABLET.DR PO SCH (09:40)
[2025-03-24] MEDS: calcium acetate 667mg (PhosLO) capsule PO SCH (09:43)
[2025-03-24] MEDS: potassium chloride 10mEq ER tablet PO SCH (09:44)
[2025-03-24] MEDS: clopidogrel 75mg tablet PO SCH (09:44)
[2025-03-24] MEDS: memantine 5mg tablet PO SCH (09:45)
[2025-03-24] MEDS: furosemide 20MG tablet PO SCH (09:46)
[2025-03-24] MEDS: atorvastatin 10mg tablet PO SCH (09:46)
[2025-03-24] MEDS: CefTRIAXone 2gm/D5W 50ml BAG 50 ML IV SCH (12:43)
[2025-03-24] MEDS: levoFLOXACIN-Levaquin 500mg/D5 100 ML IV SCH (12:43)
--- NOTE | 2025-03-24 13:22 | CONSULTATION REPORT ---
History of Present Illness Providers to CC CC: KEMAL DHILLON MD ~ Reason for Admit\Admit Dx: Cardiology consultation Refering MD: tomás marinelli History of Present Illness This is a 79-year-old female with history of coronary artery disease status post CABG, carotid artery stenosis status post left endarterectomy, peripheral artery disease with history of right lower extremity stent in the past, type 1 diabetes. She presented to [facility] initially with complaints of shortness for breath. She had a fall. Initially admitted to the hospitalist service. Found to have acute hypoxic respiratory failure and severe sepsis secondary to multi focal pneumonia. Was started on antibiotic therapy. Had worsening renal failure and respiratory failure requiring increased oxygen. Was therefore transferred to the ICU. Was placed on dialysis on March 13, 2025. Received two dialysis treatments. Was stabilized and dialysis catheter was removed March 18, 2025. She developed severe right foot pain on March 17, 2025 with evidence of acute limb ischemia. Ultrasound showed right anterior tibial and posterior tibial and dorsalis pedis with no flow. Underwent a peripheral angiogram by Interventional Radiology that showed a small caliber abdominal aorta no significant iliac disease. Profunda artery is patent. Bilateral femoral popliteal runoff shows no occasions with some above the knee stenosis seen within the right popliteal artery. Single-vessel runoff via the peroneal artery on the right and two-vessel runoff on the left. She continues to complain of significant rest pain in the right lower extremity. Allergies: Coded Allergies: No Known Allergies (Unverified , 05/27/15) Home Medications Home Medications Active Reported Potassium Chloride* (Potassium Chloride) 10 Meq Capsule.sa 1 Cap PO DAILY Furosemide 20 Mg Tablet 1 Tab PO DAILY Metoprolol Succinate 50 Mg Tab.sr.24h 1 Tab PO DAILY Atorvastatin Calcium 10 Mg Tablet 1 Tab PO DAILY Memantine HCl 5 Mg Tablet 1 Tab PO BID Amlodipine Besylate 10 Mg Tablet 1 Tab PO DAILY Lisinopril* (Lisinopril) 40 Mg Tablet 1 Tab PO DAILY Aspir 81 (Aspirin) 81 Mg Tablet.dr 1 Tablet PO DAILY Past Medical History Medical History Comment Coronary artery disease with history of CABG in 2014 Carotid artery stenosis status post left endarterectomy Peripheral artery disease status post stent to the right lower extremity Diabetes type 1 Dementia Hypertension Past Surgical History Surgical History Comment Four-vessel CABG with EDEN to LAD, SVG to diagonal om, SVG to distal RCA Peripheral stent Left carotid endarterectomy Tubal ligation Hysterectomy Appendectomy Past Social History Social History Comment Quit smoking 10 years ago. Denies alcohol or drug use. Physical Exam Last Vital Signs Recorded: RN Vital Signs have been reviewed: Yes, Temperature: 97.3, Source: Temporal, Heart Rate: 86, Respiratory Rate: 22, BP: 149/44, Pulse Oximetry: 87 Physical Exam General: Awake, alert, oriented. No apparent distress Neck: Supple. Normal range of motion. No JVD Respiratory: Lungs are clear to auscultation bilaterally. No respiratory distress. Chest: Normal shape and size. No accessory muscle use. Cardiovascular: Regular rate and rhythm. S1-S2. No murmur, gallop, rub. Gastrointestinal: Abdomen is soft. Nontender to palpation. Bowel sounds present. Extremities: No lower extremity edema, cyanosis or clubbing. Neurologic: Alert and oriented x4. Nonfocal Psychiatric: Normal mood and affect. Skin: Normal color. Warm and dry. Review of Systems ROS Shortness for breath improved. No current chest pain or pressure. Has significant right lower extremity/foot pain. Otherwise, review of systems negative except specifically documented in HPI. Results Diagram Lab Result Diagram: 03/24/25 0309 03/24/25 0309 Assessment/Plan Additional Plan This is 79-year-old female who presented as a transfer from [facility] secondary to critical limb ischemia. The following is her problem list: Peripheral artery disease Concern for critical limb ischemia History of left/right iliac stent IR angiogram completed on Mar 21 2025 showing single-vessel runoff right lower extremity. Small caliber abdominal aorta. Transferred to [facility] for balloon angioplasty of the aorta per discharge note. --has been on a heparin drip --Plavix 75 mg daily --aspirin 81 mg daily --high-intensity statin to keep goal LDL less than 55 Plans for peripheral angiogram with Dr. Tiarra Dhillon. Risks, benefits and alternatives reviewed. Patient had the opportunity to ask questions and wishes to proceed. Acute on chronic kidney disease with recent dialysis requirements Monitoring kidney function and urine output. History of coronary artery disease Status post four vessel CABG in 2015 Stress test completed March 22, 2025 with moderate anterior and anteroseptal ischemia Patient denies chest pain Recommend continued medical management Valvular heart disease Moderate to severe MR, [id number] TR No current shortness for breath. Diabetes mellitus type 1 --management per her primary team Recent septic shock secondary to multifocal pneumonia Continues to have significant leukocytosis and lactic acid elevated. Remains on pressors intermittently Management per her ICU team. Case discussed with Dr. Tiarra Dhillon. In agreement with the above plan. He will perform peripheral angiogram this afternoon. Supervising MD Supervising Physician: SHERINE Mathur NP March 24, 2025 13:22
[2025-03-24] MEDS: NORepinephrine 8mg/ 250ml NS 250 ML IV PRN (13:56)
--- NOTE | 2025-03-24 14:03 | CONSULTATION REPORT - RESIDENT ---
Consult Providers to CC Resident Creating Document: GABBY HOOKER RES CC: SANTI ADAIR MD History of Present Illness Reason for Admit\Complaint: RLE ALI History of Present Illness 79-year-old female with past medical history of type 1 dm, HTN, CAD s/p CABG, PAD s/p stent to [facility], dementia came as a transfer from [facility] for intervention for abdominal aorta. Hospital course at [facility] -admitted on 03/09, for a fall, diagnosed with sepsis, community-acquired pneumonia, completed course with ceftriaxone, and doxycycline. She also underwent thoracentesis with removal of 300 cc of serous fluid. She had JUAN JOSÉ with two sessions of dialysis done from 03/13 to 03/15. Her creatinine improved and deemed no need for dialysis. Wiliam was removed. But the next day patient developed acute right lower limb ischemia. Arterial duplex showed no flow in the SAMIR, GLOVE PRINTER, DP, peroneal arteries. Had undergone arteriogram on 03/21 by IR which showed small caliber abdominal aorta similar in size to superior mesenteric artery, no significant iliac inflow disease both profunda femoris are patent single vessel right cough runoff via peroneal artery two vessel left cough done of via peroneal and SAMIR. Planned to undergo aortic surgery by Dr. Vasquez. Preop evaluation showed Lexiscan positive for moderate anterior and septal ischemia. Later on patient is transferred to [facility] for balloon angioplasty of aorta by Dr. Dhillon The patient is undergoing balloon angioplasty today at 2:30 p.m. currently she is complaining of right lower limb pain, and Coldness Allergies: Coded Allergies: No Known Allergies (Unverified , 05/27/15) Home Medications Home Medications Active Reported Potassium Chloride* (Potassium Chloride) 10 Meq Capsule.sa 1 Cap PO DAILY Furosemide 20 Mg Tablet 1 Tab PO DAILY Metoprolol Succinate 50 Mg Tab.sr.24h 1 Tab PO DAILY Atorvastatin Calcium 10 Mg Tablet 1 Tab PO DAILY Memantine HCl 5 Mg Tablet 1 Tab PO BID Amlodipine Besylate 10 Mg Tablet 1 Tab PO DAILY Lisinopril* (Lisinopril) 40 Mg Tablet 1 Tab PO DAILY Aspir 81 (Aspirin) 81 Mg Tablet.dr 1 Tablet PO DAILY Past Medical History Past Medical History Dementia CAD s/p CABG 10 years ago Type 1 diabetes mellitus Hypertension PAD s/p right lower extremity stenting Past Surgical History Surgical History Comment CABG Past Social History Social History Comment The patient lives in her house with family. Ambulates independently without assistance. Denies smoking, alcohol and illicit drug abuse. Quit smoking 10 years back. Smoked for about 10 years half to one pack of cigarettes per day. ROS ROS 12 point review of system done all negatives except for pertinent positives mentioned in the HPI Exam Vitals: Vital Signs Date Time Temp Pulse Resp B/P (MAP) Pulse Ox O2 Delivery O2 Flow Rate FiO2 03/24/25 13:00 97.5 86 24 136/57 (83) 95 Nasal Cannula 3.0 General: Elderly female, alert and oriented, not in acute distress Head: Normocephalic with an atraumatic Eyes: Pupils- 3mm, reacting to light, conjunctiva- anicteric Nose and throat: No polyps, septum- normal, no mucosal ulcers Neck: Supple, no lymphadenopathy, no carotid bruit Respiratory: No use of accessory muscles of respiration, Bilateral normal vesiscular breath sounds heard. No wheeze, rhochi or creps Cardiac: S1-S2 heard, rhythm regular, systolic murmur at the mitral region Abdomen: non distended, no tenderness, no organomegaly, bowel sounds - heard Extremities: right foot cold and tender to touch,B/L dorsalis pedis, popliteal, femoral- not felt Skin: warm and dry, no rash, no purpura Neuro: No focal deficit, gross cranial nerve exam - normal Diagnostic Data Last Recorded Lab Results: 03/24/25 0309 03/24/25 0309 Diagnostic Data: Laboratory Tests Test 03/24/25 03:09 03/24/25 09:50 Prothrombin Time 17.7 SECONDS (9.0-12.0) H INR International Normalized Ratio 1.8 INR Activated Partial Thromboplast Time 45 SECONDS (22-32) H APTT (Heparin Protocol) 88 SECONDS (45-75) H Coagulation Comments Additional Plan 79-year-old female with past medical history of type 1 dm, HTN, CAD s/p CABG, PAD s/p stent to E, dementia came as a transfer from [facility] for intervention for abdominal aorta. Is having right lower limb acute limb ischemia with severe atherosclerosis of abdominal aorta. History of ATN needing dialysis from 03/13 to 03/15 at [facility]. Nephrology is consulted for evaluation of the need for possible dialysis JUAN JOSÉ on CKD -JUAN JOSÉ likely ATN secondary to sepsis, hypotension, CKD secondary to diabetes, hypertension -baseline creatinine 1.33 -at the time of admission to [facility] creatinine was 2.29 which came down to 1.6 after HD -creatinine trended up and reach should 3.2, down to 2.9 today -urine output is like 10 cc/hour -given she has received contrast on 03/21 and will again receive contrast today, patient will likely needs dialysis tomorrow. Place Wiliam cath tomorrow -If she remains on vasopressors CRRT tmrw, and if blood pressure is improved she might need HD tomorrow -chest x-ray showing pulmonary congestion, after the procedure she would be started on Lasix drip at 10 mg/hour -DC lisinopril -DC levofloxacin -monitor BMP and strict input output chart Hyperphosphatemia -continue PhosLo t.i.d. hyponatremia -sodium of 130 -monitor BMP q.6 Thank you for interesting consult. We will continue to follow the patient along with you Attending Note: Patient seen and examined with residetn. CXR consistent with pulmonary edema. will start lasix drip today at 10mg/hr and see if she continues to make urine. Also stopped her iv fluids. High risk for needing dialysis again. Hopefully it is again a temporary affair. She has ischemic right leg and this needs to be taken care of first. Also a high risk for atheroembolic disease. If the latter happens, she may become a permanent dialysis patient. Will follow with you, Santi Adair MD Nephrolocy / CCM Date of Service: March 24, 2025 Billing Provider: SANTI ADAIR MD, HARIVARSHA, [facility] March 24, 2025 14:03 SANTI ADAIR MD March 24, 2025 19:47
[2025-03-24] MEDS ORDERED: fentaNYL/PF 50MCG/1 ML 2ML syringe ONE (14:13)
[2025-03-24] MEDS ORDERED: LIDOcaine 1% 30ml preserv. free vial ONE (14:13)
[2025-03-24] MEDS ORDERED: midazolam 1 mg/ML 2ml injection ONE (14:13)
[2025-03-24] MEDS ORDERED: heparin 1,000unit/ml 10ml vial 10 ML ONE (14:13)
[2025-03-24] MEDS ORDERED: iohexol 350MG/ML 100ml bottle IV ONE (14:14)
[2025-03-24] MEDS ORDERED: furosemide inj 1,000 MG in normal saline 250ml IV soln 150 ML IV SCH (16:20)
--- NOTE | 2025-03-24 16:21 | ELECTROCARDIOGRAPH REPORT ---
[facility] Test Date: 2025-03-24 Test Time: 16:19:52 Pat Name: RAOUL BURCIAGA Department: [facility] 2S Patient ID: [id number] Room: [facility] 2008 A Gender: F Hay Stacker: : 1945 Requested By: SANDRA RUGGIERO Order Number: [id number] Reading MD: Dr. SANGEETA Shafer Measurements Intervals Allen Rate: 82 P: 0 OK: 0 QRS: 122 QRSD: 107 T: 179 QT: 413 QTc: 483 Interpretive Statements Regular narrow complex rhythm. Lot of baseline artifact. Probable lateral infarct, age indeterminate Anteroseptal infarct, old Abnormal T, consider ischemia, inferior leads Artifact in lead(s) I,II,III,aVR,aVL,aVF,V1,V2 Electronically Signed On 03-24-2025 16:37:[address] SANGEETA Shafer Please click the below link to view image of tracing.
--- NOTE | 2025-03-24 17:41 | RADIOLOGY REPORT ---
EXAM: US ULTRASOUND KIDNEY NON VASC INDICATION: increased cr TECHNIQUE: Multiple real-time sonographic images of the kidneys and bladder were obtained. COMPARISON: None Findings: Right kidney measures 10.3 x 4.0 x 4.9 cm with normal contours, echotexture, and cortical thickness. No evidence of hydronephrosis, calculi, cystic or solid lesions. Left kidney measures 8.2 x 4.2 x 4.6 cm with normal contours, echotexture, and cortical thickness. No evidence of hydronephrosis, calculi, cystic or solid lesions. Urinary bladder is decompressed via Hendrickson catheter. Impression: 1. Asymmetric kidneys, [id number]-left, which are otherwise unremarkable. 2. Urinary bladder is decompressed via Hendrickson catheter.
[2025-03-24] MEDS: furosemide inj 100 MG in normal saline 100ml IV soln 90 ML IV SCH (17:44)
--- NOTE | 2025-03-24 18:33 | PROGRESS NOTE- Residence ---
Progress Note - Resident Providers to CC Resident Creating Document: LESLI WASSERMAN, CHRISTIANA ~ Central Line/PICC still needed: No Hendrickson-Non Protocol Hendrickson Indications Met/Not Met: F/C Indications Not Met Antibiotic Timeout Antibiotic Ordered?: Yes Subjective Patient complaining of pain in the right leg but no other acute complaints. She is being managed in the ICU Objective Vital Signs Date Time Temp Pulse Resp B/P (MAP) Pulse Ox O2 Delivery O2 Flow Rate FiO2 03/24/25 17:37 93 Nasal Cannula* 6 44 03/24/25 17:00 97.5 81 16 113/38 (63) Result Diagram: 03/24/25 0309 03/24/25 0309 General: Drowsy but wakes up to touch HEENT: Conjunctiva pale, Sclera clear, Mucus Membranes moist. Temporal wasting+ Resp: Unlabored. Diminished left basilar breath sounds. Right sided breath sounds normal Heart: Regular Rate and rhythm, pansystolic aortic murmur present Abdomen: Soft and non tender no organomegaly Extremities: Significant pain in the right leg, cold right toes. Bluish discolouration of the third right toe. Pedal pulses difficult to feel Skin: Warm and Dry. Coagulation Studies Laboratory Tests Test 03/24/25 03:09 03/24/25 09:50 Prothrombin Time 17.7 SECONDS (9.0-12.0) H INR International Normalized Ratio 1.8 INR Activated Partial Thromboplast Time 45 SECONDS (22-32) H APTT (Heparin Protocol) 88 SECONDS (45-75) H Coagulation Comments Assessment Assessment A 79-year-old female with past medical history of dementia, hypertension, type 1 diabetes mellitus, CAD s/p CABG, CKD stage 3s/p PTCA to the right lower limb was transferred from [facility] to [facility] for further care of acute limb ischemia and severe aortic stenosis. She was being treated for CAP induced septic shock at [facility], was evaluated by IR who in addition to the vascular surgery recommend transfer for stenting of the aortic artery due to multi-vessel blood supply cut off. Plan Plan 1. Acute limb ischemia: POA Right lower limb ischemia Chronic PAD History of left/right iliac stent IR angiogram completed on Mar 21 2025 showing single-vessel runoff right lower extremity. Small caliber abdominal aorta. Transferred to [facility] for balloon angioplasty of the aorta per discharge note. - S/p aortic stent today on 03/24/25 - Continues to be on the heparin drip - Plan for Right popliteal and SFA stent on - Continue plan as per ICU, cardiology and vascular surgery - Pain management with morphine and dilaudid 2. Atrial fibrillation with RVR 03/23/25: The patient is currently in the ICU. Received 150 mg IV amiodarone. Currently on the drip. 03/24/25: currently rate controlled and on the amiodarone drip HR around 90's but still in afib 3. Septic shock: POA Likely secondary to community-acquired pneumonia UTI 03/23/25: Patient currently on Levophed drip. WBC trended up from 12.91 on 03/09/2025 to 33.2 today. Elevated procalcitonin and lactic acid. The patient received eight days of cefepime 1 g IV daily, nine days of doxycycline 100 mg twice daily p.o., four days of vancomycin 500 mg IV daily. Was receiving ceftriaxone 2 g daily IV and metronidazole 500 mg IV thrice daily before she was discharged from [facility]. Both started on 03/21/2025. Continue ceftriaxone. Rule out C diff. Patient complained of loose stools. 03/24/25: WBS's sustained in the high 30,000's No febrile episodes recorded Continues to be on low dose norepi drip 4. Acute on chronic kidney failure CKD stage 3 Hyperphosphatemia 03/23/25: Patient underwent dialysis for 2 days at [facility]; Wiliam catheter removed Currently GFR is 15, creatinine 3.01, BUN 88. Consider nephrology consultation for possible dialysis. The patient was receiving calcium acetate 667 mg thrice daily with meals. Continue with the same. 03/24/25: Nephrology following the patient 5. CHF: Stable; no acute exacerbation The patient underwent thoracentesis with removal of 300 mL of serous fluid on 03/12/2025. Echocardiogram showed LVEF of 55-60%. Mild AR, woncyuvd-dc-zwpcyf MR, qyqp-nx-hvnqulfe TR. 6. Type 1 DM: On hyperlgycemia/hypoglycemia protocol Code Status: Full code DVT Prophylaxis: Heparin PT: Ordered Prognosis: Guarded Disposition: Continue care in the ICU. Lesli Wasserman PGY1, Internal medicine resident Date of Service: March 24, 2025 Billing Provider: MEAGHAN KU MD Common Visit Codes: 13598-[id number] INP/OBS CARE(HIGH) LESLI WASSERMAN, RES March 24, 2025 18:33 MEAGHAN KU MD March 24, 2025 19:49
[2025-03-24] MEDS: vasopressin inj. 40 UNIT in normal saline 50ml IV soln 38 ML IV SCH (18:37)
--- NOTE | 2025-03-24 18:38 | CONSULTATION REPORT - RESIDENT ---
Consult Providers to CC Resident Creating Document: TEODORO ROJAS CHRISTIANA MELISSA History of Present Illness Reason for Admit\Complaint: Rt lower limb iscemia, Septic shock History of Present Illness 79-year-old female past medical history of dementia, hypertension, type 1 diabetes mellitus, coronary artery disease status post CABG, peripheral artery disease was transferred from [facility] for evaluation and management of acute tract lower limb ischemia. The patient was admitted at [facility] on 03/09/2025 for evaluation and management of septic shock secondary to community-acquired. At [facility] the patient received eight days of cefepime, nine days of doxycycline and four days of vancomycin. She was started on ceftriaxone and metronidazole before being transferred to our hospital. During her course of hospitalization the patient also treated for JUAN JOSÉ secondary to ATN and was started on dialysis. She underwent two cycles of dialysis and which was later discontinued as the patient's renal function improved. On 03/17/2025, the patient started complaining of severe right foot pain and developed acute limb ischemia. Arterial duplex of right lower extremity showed no flow in anterior tibial artery, posterior tibial artery, dorsalis pedis and peroneal arteries. Vascular surgeon, Dr. Wnyn was consulted and the patient underwent IR angiogram on 03/21/2025 on his recommendations. It showed afeline, small caliber abdominal aorta, similar in size to superior mesenteric artery. No significant iliac inflow disease. Both profunda femoris arteries are patent. Single vessel right calf runoff via peroneal artery, two vessel left calf runoff via peroneal and anterior tibial arteries. Dr. Vasquez was initially considering aortic surgery and requested Lexiscan which showed moderate anterior and anterior septal ischemia. After discussion with family, plan was made to transfer the patient to [facility] for aortic stenting by Dr. Dhillon. Allergies: Coded Allergies: No Known Allergies (Unverified , 05/27/15) Home Medications Home Medications Active Reported Potassium Chloride* (Potassium Chloride) 10 Meq Capsule.sa 1 Cap PO DAILY Furosemide 20 Mg Tablet 1 Tab PO DAILY Metoprolol Succinate 50 Mg Tab.sr.24h 1 Tab PO DAILY Atorvastatin Calcium 10 Mg Tablet 1 Tab PO DAILY Memantine HCl 5 Mg Tablet 1 Tab PO BID Amlodipine Besylate 10 Mg Tablet 1 Tab PO DAILY Lisinopril* (Lisinopril) 40 Mg Tablet 1 Tab PO DAILY Aspir 81 (Aspirin) 81 Mg Tablet.dr 1 Tablet PO DAILY Past Medical History Past Medical History Dementia CAD s/p CABG 10 years ago Type 1 diabetes mellitus Hypertension PAD s/p right lower extremity stenting Past Surgical History Surgical History Comment CABG Right lower extremity stenting Past Social History Social History Comment Alcohol Use: None Drug Use: None Lives with: Spouse Lives In: Home ROS ROS As stated above in the HPI, otherwise all systems are reviewed and negative. Exam Vitals: Vital Signs Date Time Temp Pulse Resp B/P (MAP) Pulse Ox O2 Delivery O2 Flow Rate FiO2 03/24/25 17:37 93 Nasal Cannula* 6 44 03/24/25 17:00 97.5 81 16 113/38 (63) General: Elderly female, alert and oriented, not in acute distress Head: Normocephalic with an atraumatic Eyes: Pupils- 3mm, reacting to light, conjunctiva- anicteric Nose and throat: No polyps, septum- normal, no mucosal ulcers Neck: Supple, no lymphadenopathy, no carotid bruit Respiratory: No use of accessory muscles of respiration, Bilateral normal vesiscular breath sounds heard. No wheeze, rhochi or creps. On 3L o2 via NV Cardiac: S1-S2 heard, rhythm regular, systolic murmur at the mitral region Abdomen: non distended, no tenderness, no organomegaly, bowel sounds - heard Extremities: right foot cold and tender to touch, peripheral pulses - not felt in right foot Skin: warm and dry, no rash, no purpura Neuro: No focal deficit, gross cranial nerve exam - normal Diagnostic Data Last Recorded Lab Results: 03/24/25 0309 03/24/25 0309 Diagnostic Data: Laboratory Tests Test 03/24/25 03:09 03/24/25 09:50 Prothrombin Time 17.7 SECONDS (9.0-12.0) H INR International Normalized Ratio 1.8 INR Activated Partial Thromboplast Time 45 SECONDS (22-32) H APTT (Heparin Protocol) 88 SECONDS (45-75) H Coagulation Comments Additional Plan Septic shock secondary to community-acquired pneumonia The patient received eight days of cefepime 1 g IV daily, nine days of doxycycline 100 mg twice daily p.o., four days of vancomycin 500 mg IV daily. Was receiving ceftriaxone 2 g daily IV and metronidazole 500 mg IV thrice daily before she was discharged from [facility]. Both started on 03/21/2025. Currently started the patient on IV ceftriaxone 2 g daily and IV levofloxacin 500 mg daily. Follow up with blood cultures. Hypotensive secondary to septic shock requiring IV norepinephrine IV vasopressin. We will wean the patient off pressors with a target map of greater than 65. Peripheral artery disease Acute right lower extremity ischemia IR angiogram on 03/21/2025 showed afeline, small caliber abdominal aorta, similar in size to superior mesenteric artery. No significant iliac inflow disease. Both profunda femoris arteries are patent. Single vessel right calf runoff via peroneal artery, two vessel left calf runoff via peroneal and anterior tibial arteries. Patient underwent cardiac angiogram and abdominal tend placement today. Continues to be on IV heparin drip. Managed by Dr. Dhillon. Plan to undergo right popliteal and SFA stent on . Pain management with IV morphine and Dilaudid. Atrial fibrillation with rapid ventricular rate Patient was started on IV amiodarone drip. Her rate is well-controlled with IV amiodarone drip. We will plan to switch her to p.o. amiodarone. JUAN JOSÉ on CKD Hyperphosphatemia The most likely cause of the patient's JUAN JOSÉ is ATN secondary to septic shock. The patient was started on dialysis at [facility]. Dialysis was discontinued as the patient's renal function recovered. We will manage as per their recommendations. Type 1 DM: On hyperlgycemia/hypoglycemia protocol NSTEMI versus type 2 W[place] The patient's troponin at the time of admission is 864. [facility] a moderate anterior and anterior septal ischemia. Management per machine tailer. Currently on IV heparin drip. CODE STATUS: Full code DVT prophylaxis: IV heparin Prognosis: Guarded Teodoro Rojas MD Internal Medicine Resident, PGY-2 Date of Service: March 24, 2025 Billing Provider: SANDRA RUGGIERO MD, SURYA PRATIK, RES March 24, 2025 18:38
[2025-03-24] MEDS ORDERED: morphine 2 MG/ML inj. syringe IV PRN (18:55)
[2025-03-24] MEDS: morphine 2 MG/ML inj. syringe IV PRN (19:31)
[2025-03-24 21:55] LABS: ALBUMIN 2.1 G/DL (3.4-5.0); ANION GAP 13 (8-16); BLOOD UREA NITROGEN 85 MG/DL (7-18); BUN/CREATININE RATIO 29.5 (10.0-20.0); CALCIUM 7.3 MG/DL (8.5-10.1); CHLORIDE 97 MMOL/L (99-107); CREATININE 2.88 MG/DL (0.40-0.90); GLUCOSE 164 MG/DL (70-104); POTASSIUM 3.6 MMOL/L (3.5-5.1); SODIUM 132 MMOL/L (135-145); TOTAL CARBON DIOXIDE 21.6 MMOL/L (24-32); eCRCL 12 ML/MIN; eGFR 16 ML/MIN
[2025-03-25] VITALS (24 sets, daily range): BP systolic 86–149; BP diastolic 26–76; PULSE 67–78; RESP 9–19; O2SAT 92–99
[2025-03-25 03:00] LABS: BASOPHILS # (AUTO) 0.1 X10'3 (0-0.2); BASOPHILS % (AUTO) 0.2 % (0-1); EOSINOPHILS % (AUTO) 0 % (0-6); HEMOGLOBIN 7.2 g/dl (12.0-16.0); LYMPHOCYTES % (AUTO) 2.9 % (21-51); MEAN CORPUSCULAR HEMOGLOBIN 29.9 PG (27.0-31.0); MEAN CORPUSCULAR HGB CONC 34.3 g/dL (33.0-36.5); MEAN CORPUSCULAR VOLUME 87.3 FL (78-98); MONOCYTES # (AUTO) 1.7 X10'3 (0-0.9); MONOCYTES % (AUTO) 4.9 % (2-12); NEUTROPHILS # (AUTO) 32.3 X10'3 (1.8-7.7); PLATELET COUNT 384 X10'3 (140-440); RED CELL DISTRIBUTION WIDTH 14.6 % (11.5-14.5)
[2025-03-25 03:07] LABS: INR 2.1 INR; PROTHROMBIN TIME 19.8 SECONDS (9.0-12.0)
[2025-03-25 03:09] LABS: WHITE BLOOD COUNT 35.1 X10'3 (4.5-11.0)
[2025-03-25 03:16] LABS: ALANINE AMINOTRANSFERASE 75 U/L (12-78); ALBUMIN 2.1 G/DL (3.4-5.0); ALBUMIN/GLOBULIN RATIO 0.6 (1.1-1.5); ALKALINE PHOSPHATASE 215 IU/L (46-116); ANION GAP 12 (8-16); ASPARTATE AMINO TRANSFERASE 19 U/L (10-37); BILIRUBIN,TOTAL 0.4 MG/DL (0.1-1.0); BLOOD UREA NITROGEN 85 MG/DL (7-18); BUN/CREATININE RATIO 29.8 (10.0-20.0); CALCIUM 7.4 MG/DL (8.5-10.1); CHLORIDE 98 MMOL/L (99-107); CREATININE 2.85 MG/DL (0.40-0.90); GLUCOSE 104 MG/DL (70-104); MAGNESIUM 1.4 MG/DL (1.5-2.4); POTASSIUM 3.6 MMOL/L (3.5-5.1); SODIUM 133 MMOL/L (135-145); TOTAL CARBON DIOXIDE 22.6 MMOL/L (24-32); TOTAL PROTEIN 5.8 G/DL (6.4-8.2); eCRCL 12 ML/MIN; eGFR 16 ML/MIN
[2025-03-25] MEDS: MESSAGE TO NURSING IV ONE ×4 (03:33→23:25)
[2025-03-25] MEDS: dextrose 50%-water 50ml dispensing syringe IV PRN (08:46)
[2025-03-25] MEDS: magnesium sulf-water 2g/50mL 50 ML IV PRN (08:47)
[2025-03-25 10:01] LABS: ANION GAP 14 (8-16); BLOOD UREA NITROGEN 84 MG/DL (7-18); BUN/CREATININE RATIO 29.8 (10.0-20.0); CALCIUM 7.3 MG/DL (8.5-10.1); CHLORIDE 97 MMOL/L (99-107); CREATININE 2.82 MG/DL (0.40-0.90); GLUCOSE 155 MG/DL (70-104); MAGNESIUM 1.3 MG/DL (1.5-2.4); PHOSPHORUS 5.2 MG/DL (2.3-4.5); SODIUM 134 MMOL/L (135-145); TOTAL CARBON DIOXIDE 23.3 MMOL/L (24-32); eCRCL 12 ML/MIN; eGFR 16 ML/MIN
[2025-03-25 10:03] LABS: POTASSIUM 3.5 MMOL/L (3.5-5.1)
--- NOTE | 2025-03-25 10:36 | PROGRESS NOTE- Residence ---
Progress Note - Resident Providers to CC Resident Creating Document: NIKITA HOOKER RES CC: YOLANDA TORRES III DO ~ Central Line/PICC still needed: Yes Central Line/PICC Necessity: Prolonged IV access req Hendrickson-Non Protocol Hendrickson Indications Met/Not Met: F/C Indications Met Antibiotic Timeout Antibiotic Ordered?: Yes Subjective Undergone angioplasty of abdominal aorta yesterday. Started on Lasix drip since last night, urine output of 1000 cc with net positive 2.5 L. Remains on norepinephrine drip at 0.14 mics per kg per minute Doppler of the right lower extremity showed pulsations in the right dorsalis pedis Patient has a sitter today, appears confused Objective Vital Signs Date Time Temp Pulse Resp B/P (MAP) Pulse Ox O2 Delivery O2 Flow Rate FiO2 03/25/25 08:09 111/90 03/25/25 06:00 75 17 94 Nasal Cannula 6.0 03/25/25 03:00 96.1 03/24/25 17:37 44 Result Diagram: 03/25/25 0200 03/25/25 0934 Elderly female, AAO x2, not in apparent distress Head: Normocephalic with an atraumatic Eyes: Pupils- 3mm, reacting to light, conjunctiva- anicteric Nose and throat: No polyps, septum- normal, no mucosal ulcers Neck: Supple, no lymphadenopathy, no carotid bruit Respiratory: No use of accessory muscles of respiration, Bilateral normal vesiscular breath sounds heard. No wheeze, rhochi or creps Cardiac: S1-S2 heard, rhythm regular, systolic murmur at the mitral region Abdomen: non distended, no tenderness, no organomegaly, bowel sounds - heard Extremities: right foot cold, B/L dorsalis pedis, popliteal, femoral- not felt, right dorsalis pedis is positive via Doppler Skin: warm and dry, no rash, no purpura Neuro: No focal deficit, gross cranial nerve exam - normal Coagulation Studies Laboratory Tests Test 03/24/25 03:09 03/25/25 02:00 03/25/25 09:34 Activated Partial Thromboplast Time 45 SECONDS (22-32) H Prothrombin Time 19.8 SECONDS (9.0-12.0) H INR International Normalized Ratio 2.1 INR Coagulation Comments Assessment Assessment 79-year-old female with past medical history of type 1 dm, HTN, CAD s/p CABG, PAD s/p stent to RLE, dementia came as a transfer from [facility] for intervention for abdominal aorta. Is having right lower limb acute limb ischemia with severe atherosclerosis of abdominal aorta. History of ATN needing dialysis from 03/13 to 03/15 at [facility]. Nephrology is consulted for evaluation of the need for possible dialysis Plan Plan JUAN JOSÉ on CKD -JUAN JOSÉ likely ATN secondary to sepsis, hypotension, CKD secondary to diabetes, hypertension -baseline creatinine 1.33 -at the time of admission to [facility] creatinine was 2.29 which came down to 1.6 after HD -creatinine trended upto 3.2 at the time of discharge from [facility] -cr down trending- 2.82>> 2.85> 0.88>> 2.92>> 3.01 -urine output improved to 25-30cc/hr, on Lasix drip at 10 mg/hour PLAN -continue Lasix drip at 10 mg/hour -renal function is improving and urine output is improved, no need for dialysis today -monitor BMP q6 as she is on lasix drip and strict input output chart -monitor map above 65 -likely needs HD tomorrow, karlene cath can be placed today Hypomagnesemia -magnesium 1.3 -giving magnesium 6 g over 6 hours Hyperphosphatemia phos-5.2 -continue PhosLo t.i.d. hyponatremia -imporved to 134 -monitor BMP q.6 Thank you for interesting consult. We will continue to follow the patient along with you Attending attestation to follow Nikita Hooker MD IM resident Date of Service: March 25, 2025 Billing Provider: YOLANDA TORRES III, HARIVARSHA, RES March 25, 2025 10:35
[2025-03-25] MEDS: pantoprazole 40 MG vial IV SCH (12:26)
[2025-03-25] MEDS: HYDROmorphone inj. 0.5 MG/0.5 ML DISP.SYRIN IV PRN (14:09)
[2025-03-25] MEDS: heparin 1,000 units/ml 10ml inj HE ONE ×2 (15:10)
--- NOTE | 2025-03-25 15:14 | PROGRESS NOTE- Residence ---
Progress Note - Resident Providers to CC Resident Creating Document: TEODORO ROJAS BELÉN, RES ~ Antibiotic Timeout Antibiotic Ordered?: Yes Subjective Patient seen and examined at the bedside today. We placed a Wiliam cath in the right internal jugular today as requested by the public relations associate for dialysis tomorrow. She is stable and appears to be in no acute distress. Objective Vital Signs Date Time Temp Pulse Resp B/P (MAP) Pulse Ox O2 Delivery O2 Flow Rate FiO2 03/25/25 14:09 13 03/25/25 14:00 70 117/45 (69) 96 Nasal Cannula 6.0 03/25/25 13:00 96.6 03/24/25 17:37 44 Result Diagram: 03/25/25 0200 03/25/25 0934 Elderly female, alert and oriented, not in acute distress Head: Normocephalic with an atraumatic Eyes: Pupils- 3mm, reacting to light, conjunctiva- anicteric Nose and throat: No polyps, septum- normal, no mucosal ulcers Neck: Supple, no lymphadenopathy, no carotid bruit Respiratory: No use of accessory muscles of respiration, Bilateral normal vesiscular breath sounds heard. No wheeze, rhochi or creps. On 6L o2 via NV Cardiac: S1-S2 heard, rhythm regular, systolic murmur at the mitral region Abdomen: non distended, no tenderness, no organomegaly, bowel sounds - heard Extremities: right foot cold and tender to touch, peripheral pulses - not felt in right foot Right dorsalis pedal pulse positive with a Doppler today. Skin: warm and dry, no rash, no purpura Neuro: No focal deficit, gross cranial nerve exam - normal Coagulation Studies Laboratory Tests Test 03/24/25 03:09 03/25/25 02:00 03/25/25 09:34 Activated Partial Thromboplast Time 45 SECONDS (22-32) H Prothrombin Time 19.8 SECONDS (9.0-12.0) H INR International Normalized Ratio 2.1 INR APTT (Heparin Protocol) 52 SECONDS (45-60) Coagulation Comments Assessment Assessment 79-year-old female past medical history of dementia, hypertension, type 1 diabetes mellitus, coronary artery disease status post CABG, peripheral artery disease was transferred from [facility] for evaluation and management of acute right lower limb ischemia. Patient underwent stenting of the abdominal aorta yesterday by Dr. Dhillon and is planned to get stenting of the right popliteal and SFA tomorrow. She is currently in the ICU for further management of septic shock requiring vasopressors. The patient developed JUAN JOSÉ on CKD for which she was started on dialysis at [facility]. Her renal function initially improved but started deteriorating again and hence the patient is planned to be started back on dialysis tomorrow. Plan Plan Septic shock secondary to community-acquired pneumonia The patient received eight days of cefepime 1 g IV daily, nine days of doxycycline 100 mg twice daily p.o., four days of vancomycin 500 mg IV daily. Blood cultures-no growth after one day. Currently started the patient on IV ceftriaxone 2 g daily and IV levofloxacin 500 mg daily. Hypotensive secondary to septic shock requiring IV norepinephrine IV vasopressin. We will wean the patient off pressors with a target map of greater than 65. Peripheral artery disease Acute right lower extremity ischemia IR angiogram on 03/21/2025 showed afeline, small caliber abdominal aorta, similar in size to superior mesenteric artery. No significant iliac inflow disease. Both profunda femoris arteries are patent. Single vessel right calf runoff via peroneal artery, two vessel left calf runoff via peroneal and anterior tibial arteries. Patient underwent cardiac angiogram and abdominal aorta stent placed yesterday. On IV heparin drip. Managed by the hoistman Dr. Rhoades. Plan to undergo right popliteal and SFA stent tomorrow. Pain management with IV morphine and Dilaudid. Atrial fibrillation with rapid ventricular rate Patient was started on IV amiodarone drip. Her rate is well-controlled with IV amiodarone drip. We will plan to switch her to p.o. amiodarone. JUAN JOSÉ on CKD The most likely cause of the patient's JUAN JOSÉ is ATN secondary to septic shock. The patient was started on dialysis at [facility]. Dialysis was discontinued as the patient's renal function recovered. The patient's creatinine continues to be stable. BUN and creatinine 2.82 and 84 today. She was started yesterday on IV Lasix drip as per nephrology recommendations. The patient's input and output over the last 24 hours shows a positive fluid balance of 2509. She is planned to undergo hemodialysis tomorrow. Wiliam catheter placed today. Hyperphosphatemia Phosphate 5.2 On PhosLo t.i.d.. Hypomagnesemia Magnesium 1.3 today. We will replace magnesium per protocol. Type 1 DM: On hyperlgycemia/hypoglycemia protocol NSTEMI versus type 2 VT The patient's troponin at the time of admission is 864. Recent Lexiscan at [facility] showed a moderate anterior and anterior septal ischemia. Management per hoistman. Currently on IV heparin drip, p.o. aspirin and Plavix. CODE STATUS: Full code DVT prophylaxis: IV heparin Prognosis: Guarded Teodoro Rojas MD Internal Medicine Resident, PGY-2 Date of Service: March 25, 2025 Billing Provider: SANDRA RUGGIERO MD,TEODORO MELISSA, RES March 25, 2025 15:14
--- NOTE | 2025-03-25 15:31 | RADIOLOGY REPORT ---
EXAM: DI CHEST,SINGLE VIEW TECHNIQUE: Single frontal chest radiograph CLINICAL HISTORY: Wiliam placement COMPARISON: DI CHEST,SINGLE VIEW on DOS: 03/24/25, DI CHEST,SINGLE VIEW on DOS: 03/23/25 Findings/Impression: Frontal chest radiograph demonstrates no acute osseous or superficial soft tissue abnormalities. Left-sided IJ catheter terminates near the proximal SVC. Right-sided IJ catheter terminates in the ri ght atrium. The trachea is midline. The cardiac silhouette and mediastinum are within normal limits. Bibasilar atelectasis and/or pulmonary edema. No pneumothorax, pleural effusions, or consolidations.
--- NOTE | 2025-03-25 15:42 | PROCEDURE NOTE- Residance ---
Procedure Note Providers to CC ~ Planned Procedure Wiliam catheter placement in the right internal jugular vein Indications JUAN JOSÉ on CKD requiring hemodialysis Hemodynamic monitoring Intravenous access Type of Anesthesia Local Informed Consent Taken Description A time-out was completed verifying correct patient, procedure, site, positioning, and special equipment if applicable. The patient was placed in a dependent position appropriate for central line placement based on the vein to be cannulated. The patient�s right neck was prepped and draped in sterile fashion. 1% Lidocaine was used to anesthetize the surrounding skin area. A dual- lumen curved Wiliam catheter was introduced into the the right internal jugular vein using the Seldinger technique and under ultrasound guidance. The catheter was threaded smoothly over the guide wire and appropriate blood return was obtained. Each lumen of the catheter was evacuated of air and flushed with sterile saline. The catheter was then sutured in place to the skin and a sterile dressing applied. Perfusion to the extremity distal to the point of catheter insertion was checked and found to be adequate. Resident Dr. Patel was present for the entire procedure. Estimated Blood Loss Minimal Complication None X-Ray Findings Line in satisfactory position Date of Service: March 25, 2025 Billing Provider: SANDRA RUGGIERO MD, SURYA PRATIK, RES March 25, 2025 15:42
[2025-03-25 15:59] LABS: ANION GAP 13 (8-16); BLOOD UREA NITROGEN 86 MG/DL (7-18); CALCIUM 7.4 MG/DL (8.5-10.1); CHLORIDE 98 MMOL/L (99-107); GLUCOSE 104 MG/DL (70-104); POTASSIUM 3.4 MMOL/L (3.5-5.1); SODIUM 134 MMOL/L (135-145); TOTAL CARBON DIOXIDE 22.7 MMOL/L (24-32)
[2025-03-25 16:07] LABS: BUN/CREATININE RATIO 28.5 (10.0-20.0); CREATININE 3.02 MG/DL (0.40-0.90); eCRCL 11 ML/MIN; eGFR 15 ML/MIN
[2025-03-25 17:07] LABS: MAGNESIUM 1.9 MG/DL (1.5-2.4)
[2025-03-25] MEDS: fluconazole 100mg tablet PO SCH (17:52)
[2025-03-25] MEDS: potassium Cl 20 mEq SR tablet PO PRN (17:52)
[2025-03-25] MEDS: NUT.TX.IMP.RENAL FXN,LAC-REDUC (Nepro) 237 ML VANILLA PO SCH (17:54)
--- NOTE | 2025-03-25 18:37 | PROGRESS NOTE- Residence ---
Progress Note - Resident Providers to CC Resident Creating Document: LESLI QUIGLEY RES ~ Antibiotic Timeout Antibiotic Ordered?: Yes Subjective Patient seen and examined at the bedside today. Was awake and responding well. Improvement in pain (4/10). Objective Vital Signs Date Time Temp Pulse Resp B/P (MAP) Pulse Ox O2 Delivery O2 Flow Rate FiO2 03/25/25 18:00 97.0 69 12 121/43 (69) 98 Nasal Cannula 5.0 03/24/25 17:37 44 Result Diagram: 03/25/25 0200 03/25/25 1519 General: Awake HEENT: Conjunctiva pale, Sclera clear, Mucus Membranes moist. Resp: Unlabored. Diminished left basilar breath sounds. Right sided breath sounds normal Heart: Irregularly irregular, pansystolic aortic murmur present Abdomen: Soft and non tender no organomegaly Extremities: Interval improvement pain in the right leg. Interval improvement in temperature of the right leg with increased goal only at the level of the midfoot. Rule out bluish discoloration of the 3rd right toe. Pedal pulses are mildly dopplerable on the right leg at the level of posterior tibial artery. Skin: Warm and Dry. Coagulation Studies Laboratory Tests Test 03/24/25 03:09 03/25/25 02:00 03/25/25 17:37 Activated Partial Thromboplast Time 45 SECONDS (22-32) H Prothrombin Time 19.8 SECONDS (9.0-12.0) H INR International Normalized Ratio 2.1 INR APTT (Heparin Protocol) 139 SECONDS (45-75) *H Coagulation Comments Assessment Assessment 79-year-old female past medical history of dementia, hypertension, type 1 diabetes mellitus, coronary artery disease status post CABG, peripheral artery disease was transferred from [facility] for evaluation and management of acute right lower limb ischemia. Patient underwent stenting of the abdominal aorta yesterday by Dr. Dhillon and is planned to get stenting of the right popliteal and SFA tomorrow. She is currently in the ICU for further management of septic shock requiring vasopressors. The patient developed JUAN JOSÉ on CKD for which she was started on dialysis at [facility]. Her renal function initially improved but started deteriorating again and hence the patient is planned to be started back on dialysis tomorrow. Plan Plan 1. Acute limb ischemia: POA Right lower limb ischemia Chronic PAD History of left/right iliac stent IR angiogram completed on Mar 21 2025 showing single-vessel runoff right lower extremity. Small caliber abdominal aorta. Transferred to [facility] for balloon angioplasty of the aorta per discharge note. - S/p aortic stent today on 03/24/25 - Continues to be on the heparin drip - Plan for Right popliteal and SFA stent on - Continue plan as per ICU, cardiology and vascular surgery - Pain management with morphine and dilaudid 03/25/2025: Patient comfortable after the aortic stent yesterday. Interval improvement in pain - plan for SFA stent tomorrow - continuing heparin drip 2. Atrial fibrillation with RVR 03/23/25: The patient is currently in the ICU. Received 150 mg IV amiodarone. Currently on the drip. 03/24/25: currently rate controlled and on the amiodarone drip HR around 90's but still in afib 03/25/2025: Continues to be in the amiodarone drip - rate controlled but in AFib - anticoagulated with heparin 3. Septic shock: POA Likely secondary to community-acquired pneumonia UTI 03/23/25: Patient currently on Levophed drip. WBC trended up from 12.91 on 03/09/2025 to 33.2 today. Elevated procalcitonin and lactic acid. The patient received eight days of cefepime 1 g IV daily, nine days of doxycycline 100 mg twice daily p.o., four days of vancomycin 500 mg IV daily. Was receiving ceftriaxone 2 g daily IV and metronidazole 500 mg IV thrice daily before she was discharged from [facility]. Both started on 03/21/2025. Continue ceftriaxone. Rule out C diff. Patient complained of loose stools. 03/24/25: WBS's sustained in the high 30,000's No febrile episodes recorded Continues to be on low dose norepi drip 03/25/2025: - minimal improvement in leukocytosis - blood cultures continued to be negative - urine culture from the Hendrickson's catheter positive for Keshia; contaminant - continue management with antibiotics as per ICU 4. Acute on chronic kidney failure CKD stage 3 Hyperphosphatemia 03/23/25: Patient underwent dialysis for 2 days at [facility]; Wiliam catheter removed Currently GFR is 15, creatinine 3.01, BUN 88. Consider nephrology consultation for possible dialysis. The patient was receiving calcium acetate 667 mg thrice daily with meals. Continue with the same. 03/24/25: Nephrology following the patient 03/25/2025: - Wiliam cath placed today for possible dialysis starting tomorrow - patient was started on Lasix drip last night - monitor I&O through Hendrickson's catheter; as per EMR, retaining 2509 mL of fluid 5. Acute on chronic Heart failure with preserved EF: The patient underwent thoracentesis with removal of 300 mL of serous fluid on 03/12/2025. Echocardiogram showed LVEF of 55-60%. Mild AR, [id number] MR, wded-[id number] TR. 03/25/2025: -IV Lasix drip started last night -ProBNP [place] [address] -Continue monitoring I&O -Fluid restriction 6. Type 1 DM: On hyperlgycemia/hypoglycemia protocol Code Status: Full code DVT Prophylaxis: Heparin PT: Ordered Prognosis: Guarded Disposition: Continue care in the ICU. Lesli Quigley PGY1, Internal medicine resident Date of Service: March 25, 2025 Billing Provider: MEAGHAN KU MD Common Visit Codes: [id number] INP/OBS CARE(HIGH) LESLI QUIGLEY, CHRISTIANA March 25, 2025 18:37 MEAGHAN KU MD March 25, 2025 22:08
[2025-03-25 21:56] LABS: ALBUMIN 1.9 G/DL (3.4-5.0); ANION GAP 14 (8-16); BLOOD UREA NITROGEN 85 MG/DL (7-18); BUN/CREATININE RATIO 29.3 (10.0-20.0); CALCIUM 7.3 MG/DL (8.5-10.1); CHLORIDE 97 MMOL/L (99-107); GLUCOSE 82 MG/DL (70-104); POTASSIUM 3.6 MMOL/L (3.5-5.1); SODIUM 133 MMOL/L (135-145); TOTAL CARBON DIOXIDE 21.9 MMOL/L (24-32); eCRCL 11 ML/MIN; eGFR 16 ML/MIN
[2025-03-25] MEDS: HYDROcodone/acetaminophen 5mg/325mg tablet PO PRN (23:17)
[2025-03-26] VITALS (32 sets, daily range): BP systolic 99–149; BP diastolic 32–67; PULSE 59–79; RESP 10–20; TEMP 96.6–97.5; O2SAT 89–97
[2025-03-26 02:41] LABS: BASOPHILS # (AUTO) 0.1 X10'3 (0-0.2); BASOPHILS % (AUTO) 0.3 % (0-1); EOSINOPHILS % (AUTO) 0.2 % (0-6); MEAN CORPUSCULAR HEMOGLOBIN 29.2 PG (27.0-31.0); MEAN CORPUSCULAR HGB CONC 33.1 g/dL (33.0-36.5); MEAN CORPUSCULAR VOLUME 88.2 FL (78-98); MEAN PLATELET VOLUME 8.9 FL (7.4-10.4); MONOCYTES % (AUTO) 4.1 % (2-12); NEUTROPHILS % (AUTO) 91.4 % (42-75); PLATELET COUNT 302 X10'3 (140-440); RED BLOOD COUNT 2.21 X10'6 (4.20-5.60); RED CELL DISTRIBUTION WIDTH 14.9 % (11.5-14.5)
[2025-03-26 02:50] LABS: INR 1.9 INR; PROTHROMBIN TIME 18.2 SECONDS (9.0-12.0)
[2025-03-26 02:56] LABS: ALANINE AMINOTRANSFERASE 57 U/L (12-78); ALBUMIN 1.8 G/DL (3.4-5.0); ALBUMIN/GLOBULIN RATIO 0.5 (1.1-1.5); ALKALINE PHOSPHATASE 183 IU/L (46-116); ANION GAP 13 (8-16); ASPARTATE AMINO TRANSFERASE 21 U/L (10-37); BILIRUBIN,TOTAL 0.3 MG/DL (0.1-1.0); BLOOD UREA NITROGEN 86 MG/DL (7-18); BUN/CREATININE RATIO 29.2 (10.0-20.0); CALCIUM 7.3 MG/DL (8.5-10.1); CHLORIDE 98 MMOL/L (99-107); CREATININE 2.95 MG/DL (0.40-0.90); GLUCOSE 66 MG/DL (70-104); MAGNESIUM 1.8 MG/DL (1.5-2.4); POTASSIUM 3.9 MMOL/L (3.5-5.1); SODIUM 134 MMOL/L (135-145); TOTAL CARBON DIOXIDE 23.5 MMOL/L (24-32); TOTAL PROTEIN 5.2 G/DL (6.4-8.2); eCRCL 11 ML/MIN; eGFR 15 ML/MIN
[2025-03-26 02:57] LABS: HEMATOCRIT 19.5 % (35.0-45.0); HEMOGLOBIN 6.5 g/dl (12.0-16.0); WHITE BLOOD COUNT 25.2 X10'3 (4.5-11.0)
[2025-03-26 03:24] LABS: PLATELET ESTIMATE NORMAL; TOTAL CELLS COUNTED 100
[2025-03-26 03:25] LABS: ANISOCYTOSIS 2+; BURR CELLS 3+
[2025-03-26] MEDS: dextrose 50%-water 50ml dispensing syringe IV PRN (06:50)
[2025-03-26] MEDS: heparin 10,000 units/1 ML INJ IV PRN (07:13)
[2025-03-26] MEDS: MESSAGE TO NURSING IV ONE (07:17)
--- NOTE | 2025-03-26 08:52 | PROGRESS NOTE- Residence ---
Progress Note - Resident Providers to CC Resident Creating Document: NIKITA HOOKER RES CC: YOLANDA TORRES III DO ~ Central Line/PICC still needed: Yes Central Line/PICC Necessity: Prolonged IV access req Hendrickson-Non Protocol Hendrickson Indications Met/Not Met: F/C Indications Met Antibiotic Timeout Antibiotic Ordered?: Yes Subjective Hemoglobin down to 6.6, ICU team is awaiting consent for blood transfusion. Patient appears confused, has a sitter by her side. She is planned to undergo stent placement for right [employer], popliteal artery in the afternoon. Remains on Lasix drip, and Levophed Objective Vital Signs Date Time Temp Pulse Resp B/P (MAP) Pulse Ox O2 Delivery O2 Flow Rate FiO2 03/26/25 07:59 62 03/26/25 06:00 11 99/32 (54) 92 Nasal Cannula 2.0 03/25/25 20:00 97.2 03/24/25 17:37 44 Result Diagram: 03/26/2519903/26/25 020 Elderly female, AAO x2, not in apparent distress Head: Normocephalic with an atraumatic Eyes: Pupils- 3mm, reacting to light, conjunctiva- anicteric Nose and throat: No polyps, septum- normal, no mucosal ulcers Neck: Supple, no lymphadenopathy, no carotid bruit Respiratory: No use of accessory muscles of respiration, Bilateral normal vesiscular breath sounds heard. No wheeze, rhochi or creps Cardiac: S1-S2 heard, rhythm regular, systolic murmur at the mitral region Abdomen: non distended, no tenderness, no organomegaly, bowel sounds - heard Extremities: right foot cold, B/L dorsalis pedis, popliteal, femoral- not felt, right dorsalis pedis is positive via Doppler Skin: warm and dry, no rash, no purpura Neuro: No focal deficit, gross cranial nerve exam - normal Coagulation Studies Laboratory Tests Test 03/24/25 03:09 03/26/25 02:00 03/26/25 06:00 Activated Partial Thromboplast Time 45 SECONDS (22-32) H Prothrombin Time 18.2 SECONDS (9.0-12.0) H INR International Normalized Ratio 1.9 INR APTT (Heparin Protocol) 43 SECONDS (45-60) L Coagulation Comments Assessment Assessment 79-year-old female with past medical history of type 1 dm, HTN, CAD s/p CABG, PAD s/p stent to RLE, dementia came as a transfer from [facility] for intervention for abdominal aorta. Is having right lower limb acute limb ischemia with severe atherosclerosis of abdominal aorta. History of ATN needing dialysis from 03/13 to 03/15 at [facility]. Nephrology is consulted for evaluation of the need for possible dialysis Plan Plan JUAN JOSÉ on CKD -JUAN JOSÉ likely ATN secondary to sepsis, hypotension, CKD secondary to diabetes, hypertension -baseline creatinine 1.33 -at the time of admission to [facility] creatinine was 2.29 which came down to 1.6 after HD -creatinine trended upto 3.2 at the time of discharge from [facility] -cr down trending-2.95>>2.9>.3.02>> 2.82>> 2.85> 0.88>> 2.92>> 3.01 -urine output improved to 20cc/hr, on Lasix drip at 10 mg/hour PLAN -DC lasix drip -monitor BMP q6 as she is on lasix drip and strict input output chart -monitor map above 65, currently on Levophed at 0.08 -right IJ karlene cath placed -given she will be exposed to contrast today, she is at risk for needing HD again, we will evaluate based on the BMP and urine output Hypomagnesemia -magnesium improved to 1.8 Hyperphosphatemia phos-5 -continue PhosLo t.i.d. hyponatremia -imporved to 134 -monitor BMP q.6 Normocytic anemia H&H 6.5/19.5, Ordered iron profile And PRBC transfusion today Thank you for interesting consult. We will continue to follow the patient along with you Attending attestation to follow Nikita Hooker MD IM resident Date of Service: March 26, 2025 Billing Provider: YOLANDA TORRES III DO NIKITA HOOKER, RES March 26, 2025 08:52
[2025-03-26] MEDS: WATER FOR INJECTION,STERILE 71 ML in dextrose 70%-water 179 ML IV PRN (12:08)
[2025-03-26] MEDS: amiodarone 200mg tablet PO SCH (12:09)
[2025-03-26] MEDS: COMMUNICATION ORDER 1 EA MISC MC ONE (13:11)
[2025-03-26] MEDS ORDERED: midazolam 1 mg/ML 2ml injection ONE (13:13)
[2025-03-26] MEDS ORDERED: heparin 1,000unit/ml 10ml vial 10 ML ONE (13:13)
[2025-03-26] MEDS ORDERED: iohexol 350MG/ML 100ml bottle IV ONE (13:13)
[2025-03-26] MEDS ORDERED: LIDOcaine 1% 30ml preserv. free vial ONE (13:13)
[2025-03-26] MEDS ORDERED: fentaNYL/PF 50MCG/1 ML 2ML syringe ONE (13:13)
[2025-03-26] MEDS ORDERED: heparin 1,000 UNITS/NS 500ml 500 ML ONE (13:14)
--- NOTE | 2025-03-26 18:38 | PROGRESS NOTE- Residence ---
Progress Note - Resident Providers to CC Resident Creating Document: LESLI WASSERMAN RES ~ Central Line/PICC still needed: Yes Hendrickson-Non Protocol Hendrickson Indications Met/Not Met: F/C Indications Met Antibiotic Timeout Antibiotic Ordered?: Yes Subjective Patient still complains of pain in the right leg but notices improvement. Fidgeting and restless to be able to get out of bed, awake and alert. Oriented x3. Objective Vital Signs Date Time Temp Pulse Resp B/P (MAP) Pulse Ox O2 Delivery O2 Flow Rate FiO2 03/26/25 18:00 69 15 126/49 (74) 93 Nasal Cannula 4.0 03/26/25 13:16 97.5 03/24/25 17:37 44 Result Diagram: 03/26/25 02003/26/25 020 General: Awake HEENT: Conjunctiva pale, Sclera clear, Mucus Membranes moist. Resp: Unlabored. Diminished left basilar breath sounds. Right sided breath sounds normal Heart: Regular rate and rhythm, pansystolic aortic murmur present Abdomen: Soft and non tender no organomegaly Extremities: Interval improvement pain in the right leg. Interval improvement in temperature of the right leg with decreased temperature only at the level of the toes. Chronic nonhealing foot wound on the 3rd toe. Pedal pulses are mildly dopplerable on the right leg at the level of posterior tibial artery. Skin: Warm and Dry. Coagulation Studies Laboratory Tests Test 03/24/25 03:09 03/26/25 02:00 03/26/25 12:00 Activated Partial Thromboplast Time 45 SECONDS (22-32) H Prothrombin Time 18.2 SECONDS (9.0-12.0) H INR International Normalized Ratio 1.9 INR APTT (Heparin Protocol) 70 SECONDS (45-60) H Coagulation Comments Assessment Assessment 79-year-old female with past medical history of type 1 dm, HTN, CAD s/p CABG, PAD s/p stent to RLE, dementia came as a transfer from [facility] for intervention for abdominal aorta. Is having right lower limb acute limb ischemia with severe atherosclerosis of abdominal aorta. History of ATN needing dialysis from 03/13 to 03/15 at [facility]. Nephrology is consulted for evaluation of the need for possible dialysis Plan Plan 1. Acute limb ischemia: POA Right lower limb ischemia Chronic PAD History of left/right iliac stent IR angiogram completed on Mar 21 2025 showing single-vessel runoff right lower extremity. Small caliber abdominal aorta. Transferred to [facility] for balloon angioplasty of the aorta per discharge note. - S/p aortic stent today on 03/24/25 - Continues to be on the heparin drip - Plan for Right popliteal and SFA stent on - Continue plan as per ICU, cardiology and vascular surgery - Pain management with morphine and dilaudid 03/25/2025: Patient comfortable after the aortic stent yesterday. Interval improvement in pain - plan for SFA stent tomorrow - continuing heparin drip 03/26/2025: Status post SFA stenting today - Interval improvement in pain significantly - off of the heparin drip. 2. Atrial fibrillation with RVR 03/23/25: The patient is currently in the ICU. Received 150 mg IV amiodarone. Currently on the drip. 03/24/25: currently rate controlled and on the amiodarone drip HR around 90's but still in afib 03/25/2025: Continues to be in the amiodarone drip - rate controlled but in AFib - anticoagulated with heparin 03/26/2025: Stopped amiodarone drip - currently in sinus rhythm, rate in the 70s - stopped heparin drip 3. Septic shock: POA Likely secondary to community-acquired pneumonia UTI 03/23/25: Patient currently on Levophed drip. WBC trended up from 12.91 on 03/09/2025 to 33.2 today. Elevated procalcitonin and lactic acid. The patient received eight days of cefepime 1 g IV daily, nine days of doxycycline 100 mg twice daily p.o., four days of vancomycin 500 mg IV daily. Was receiving ceftriaxone 2 g daily IV and metronidazole 500 mg IV thrice daily before she was discharged from [facility]. Both started on 03/21/2025. Continue ceftriaxone. Rule out C diff. Patient complained of loose stools. 03/24/25: WBS's sustained in the high 30,000's No febrile episodes recorded Continues to be on low dose norepi drip 03/25/2025: - minimal improvement in leukocytosis - blood cultures continued to be negative - urine culture from the Hendrickson's catheter positive for Keshia; contaminant - continue management with antibiotics as per ICU 03/26/2025: Successfully weaned off of the Levophed drip - blood pressure with a map above 70s, systolic 130's - white count trending down 4. Acute on chronic kidney failure CKD stage 3 Hyperphosphatemia 03/23/25: Patient underwent dialysis for 2 days at [facility]; Wiliam catheter removed Currently GFR is 15, creatinine 3.01, BUN 88. Consider nephrology consultation for possible dialysis. The patient was receiving calcium acetate 667 mg thrice daily with meals. Continue with the same. 03/24/25: Nephrology following the patient 03/25/2025: - Wiliam cath placed today for possible dialysis starting tomorrow - patient was started on Lasix drip last night - monitor I&O through Hendrickson's catheter; as per EMR, retaining 2509 mL of fluid 03/26/2025: Wiliam cath placed but no plan for dialysis. - as per Nephrology, we will continue watching patient's renal function at this time 5. Acute on chronic Heart failure with preserved EF: The patient underwent thoracentesis with removal of 300 mL of serous fluid on 03/12/2025. Echocardiogram showed LVEF of 55-60%. Mild AR, engbserr-[id number] MR, ojto-id-cyhlgdst TR. 03/25/2025: -IV Lasix drip started last night -ProBNP [place] 62231 -Continue monitoring I&O -Fluid restriction 6. Type 1 DM: On hyperlgycemia/hypoglycemia protocol 7. New onset anemia: Normocytic and normochromic Hemoglobin 6.5 Status post 1 unit PRBC transfusion No current operative records to assess for intraoperative blood loss No abdominal pain noted Insertion site with no hematoma formation Code Status: Full code DVT Prophylaxis: None at the moment Prognosis: Guarded Disposition: Continue care in the ICU. Lesli Wasserman PGY1, Internal medicine resident Date of Service: March 26, 2025 Billing Provider: MEAGHAN KU MD Common Visit Codes: [id number] INP/OBS CARE(HIGH) LESLI WASSERMAN, CHRISTIANA March 26, 2025 18:38 MEAGHAN KU MD March 26, 2025 20:51
--- NOTE | 2025-03-26 19:07 | PROGRESS NOTE- Residence ---
Progress Note - Resident Providers to CC Resident Creating Document: MONTSERRATANAYELITEODORO CHRISTIANA MELISSA ~ Antibiotic Timeout Antibiotic Ordered?: Yes Subjective Patient seen and examined at the bedside today. The patient underwent a right lower extremity angiography today. Denied any concerns or complaints at the moment and no acute overnight events were reported.. Objective Vital Signs Date Time Temp Pulse Resp B/P (MAP) Pulse Ox O2 Delivery O2 Flow Rate FiO2 03/26/25 18:00 69 15 126/49 (74) 93 Nasal Cannula 4.0 03/26/25 13:16 97.5 03/24/25 17:37 44 Result Diagram: 03/26/25 0200 03/26/25 020 Elderly female, alert and oriented, not in acute distress Head: Normocephalic with an atraumatic Eyes: Pupils- 3mm, reacting to light, conjunctiva- anicteric Nose and throat: No polyps, septum- normal, no mucosal ulcers Neck: Supple, no lymphadenopathy, no carotid bruit Respiratory: No use of accessory muscles of respiration, Bilateral normal vesiscular breath sounds heard. No wheeze, rhochi or creps. On 4 L oxygen via nasal cannula. Cardiac: S1-S2 heard, rhythm regular, systolic murmur at the mitral region Abdomen: non distended, no tenderness, no organomegaly, bowel sounds - heard Extremities: right foot cold and tender to touch, peripheral pulses - not felt in right foot Right dorsalis pedal pulse positive with a Doppler today. Skin: warm and dry, no rash, no purpura Neuro: No focal deficit, gross cranial nerve exam - normal Coagulation Studies Laboratory Tests Test 03/24/25 03:09 03/26/25 02:00 03/26/25 12:00 Activated Partial Thromboplast Time 45 SECONDS (22-32) H Prothrombin Time 18.2 SECONDS (9.0-12.0) H INR International Normalized Ratio 1.9 INR APTT (Heparin Protocol) 70 SECONDS (45-60) H Coagulation Comments Assessment Assessment 79-year-old female past medical history of dementia, hypertension, type 1 diabetes mellitus, coronary artery disease status post CABG, peripheral artery disease was transferred from [facility] for evaluation and management of acute right lower limb ischemia. The patient underwent abdominal aorta stenting on 03/24/2025 and angiogram of the right lower extremity today. Was admitted in the ICU for further management of septic shock requiring vasopressors. Plan Plan Septic shock secondary to community-acquired pneumonia The patient received eight days of cefepime 1 g IV daily, nine days of doxycycline 100 mg twice daily p.o., four days of vancomycin 500 mg IV daily. Blood cultures-no growth after one day. Currently started the patient on IV ceftriaxone 2 g daily and IV levofloxacin 500 mg daily. The patient has been successfully weaned off of pressors. Urine culture growing Keshia albicans. Started the patient on the fluconazole 200 mg p.o. daily. Peripheral artery disease Acute right lower extremity ischemia IR angiogram on 03/21/2025 showed afeline, small caliber abdominal aorta, similar in size to superior mesenteric artery. No significant iliac inflow disease. Both profunda femoris arteries are patent. Single vessel right calf runoff via peroneal artery, two vessel left calf runoff via peroneal and anterior tibial arteries. Patient underwent cardiac angiogram and abdominal aorta stent placed 03/24/2025. She had right lower extremity angiogram today. Discontinued IV heparin drip. Patient is on Plavix 75 mg p.o. daily, atorvastatin 10 mg p.o. daily and aspirin 81 mg p.o. daily. Pain management with IV morphine and Dilaudid. Paroxysmal atrial fibrillation Currently rate controlled Discontinued IV amiodarone drip. Started the patient on p.o. amiodarone 400 mg b.i.d. JUAN JOSÉ on CKD The most likely cause of the patient's JUAN JOSÉ is ATN secondary to septic shock. The patient was started on dialysis at [facility]. Dialysis was discontinued as the patient's renal function recovered. The patient's creatinine continues to be stable. BUN and creatinine 2.95 and 86 today On IV Lasix drip as per Nephrology recommendation. No significant urinary output noted. Wiliam cath in place. Dialysis as per Nephrology recommendation. Hyperphosphatemia Phosphate 5.0 On PhosLo t.i.d.. Hypomagnesemia Magnesium 1.8 today. We will replace magnesium per protocol. Type 1 DM: On hyperlgycemia/hypoglycemia protocol NSTEMI versus type 2 TX The patient's troponin at the time of admission is 864. [facility] and anterior septal ischemia. Management per houseman. IV heparin discontinued. On aspirin, Plavix and atorvastatin. Normocytic anemia Transfused 1 unit of PRBC. Follow up with the iron studies. Close H&H monitoring. CODE STATUS: Full code DVT prophylaxis: IV heparin- discontinued today Prognosis: Guarded Teodoro Rojas MD Internal Medicine Resident, PGY-2 Date of Service: March 26, 2025 Billing Provider: SANDRA RUGGIERO MD,TEODORO MELISSA, RES March 26, 2025 19:07
[2025-03-26 20:05] LABS: BASOPHILS % (AUTO) 0.2 % (0-1); EOSINOPHILS % (AUTO) 0 % (0-6); HEMATOCRIT 27.3 % (35.0-45.0); LYMPHOCYTES # (AUTO) 0.6 X10'3 (1.1-4.8); LYMPHOCYTES % (AUTO) 2.8 % (21-51); MEAN CORPUSCULAR HEMOGLOBIN 29.4 PG (27.0-31.0); MEAN CORPUSCULAR HGB CONC 33.1 g/dL (33.0-36.5); MEAN CORPUSCULAR VOLUME 88.6 FL (78-98); MEAN PLATELET VOLUME 8.8 FL (7.4-10.4); MONOCYTES # (AUTO) 0.7 X10'3 (0-0.9); MONOCYTES % (AUTO) 3.5 % (2-12); NEUTROPHILS # (AUTO) 19.7 X10'3 (1.8-7.7); NEUTROPHILS % (AUTO) 93.5 % (42-75); PLATELET COUNT 236 X10'3 (140-440); RED BLOOD COUNT 3.08 X10'6 (4.20-5.60); WHITE BLOOD COUNT 21.1 X10'3 (4.5-11.0)
[2025-03-27] VITALS (21 sets, daily range): BP systolic 104–141; BP diastolic 39–82; PULSE 67–84; RESP 14–24; TEMP 98.6; O2SAT 91–96
[2025-03-27 03:04] LABS: BASOPHILS # (AUTO) 0.1 X10'3 (0-0.2); BASOPHILS % (AUTO) 0.6 % (0-1); EOSINOPHILS % (AUTO) 0.1 % (0-6); HEMATOCRIT 26.3 % (35.0-45.0); HEMOGLOBIN 8.7 g/dl (12.0-16.0); LYMPHOCYTES # (AUTO) 0.5 X10'3 (1.1-4.8); LYMPHOCYTES % (AUTO) 2.1 % (21-51); MEAN CORPUSCULAR HEMOGLOBIN 29.3 PG (27.0-31.0); MEAN CORPUSCULAR HGB CONC 33.2 g/dL (33.0-36.5); MEAN CORPUSCULAR VOLUME 88.2 FL (78-98); MEAN PLATELET VOLUME 9.4 FL (7.4-10.4); MONOCYTES # (AUTO) 0.7 X10'3 (0-0.9); MONOCYTES % (AUTO) 3.2 % (2-12); NEUTROPHILS # (AUTO) 20.7 X10'3 (1.8-7.7); PLATELET COUNT 233 X10'3 (140-440); RED BLOOD COUNT 2.98 X10'6 (4.20-5.60); RED CELL DISTRIBUTION WIDTH 14.9 % (11.5-14.5); WHITE BLOOD COUNT 22.1 X10'3 (4.5-11.0)
[2025-03-27 03:30] LABS: ALANINE AMINOTRANSFERASE 45 U/L (12-78); ALBUMIN 1.7 G/DL (3.4-5.0); ALBUMIN/GLOBULIN RATIO 0.5 (1.1-1.5); ALKALINE PHOSPHATASE 193 IU/L (46-116); ANION GAP 14 (8-16); ASPARTATE AMINO TRANSFERASE 29 U/L (10-37); BILIRUBIN,TOTAL 0.3 MG/DL (0.1-1.0); BLOOD UREA NITROGEN 81 MG/DL (7-18); BUN/CREATININE RATIO 25.6 (10.0-20.0); CALCIUM 7.7 MG/DL (8.5-10.1); CHLORIDE 98 MMOL/L (99-107); CREATININE 3.16 MG/DL (0.40-0.90); GLUCOSE 162 MG/DL (70-104); SODIUM 135 MMOL/L (135-145); TOTAL CARBON DIOXIDE 22.9 MMOL/L (24-32); TOTAL PROTEIN 5.4 G/DL (6.4-8.2); eCRCL 11 ML/MIN; eGFR 14 ML/MIN
[2025-03-27 03:43] LABS: FERRITIN 835 NG/ML (8-252); MAGNESIUM 1.7 MG/DL (1.5-2.4); PHOSPHORUS 4.9 MG/DL (2.3-4.5); POTASSIUM 3.7 MMOL/L (3.5-5.1)
[2025-03-27 03:47] LABS: INR 1.6 INR; PROTHROMBIN TIME 15.6 SECONDS (9.0-12.0)
[2025-03-27 03:51] LABS: % IRON SATURATION 10 % (11-46); IRON 9 UG/DL (49-151); TOTAL IRON BINDING CAPACITY 93 UG/DL (259-388)
--- NOTE | 2025-03-27 08:28 | PROGRESS NOTE ---
Progress Note Dictate Providers to CC ~ Progress Note: This very nice lady is quite quiet and slow to answer but I think it is due to decreased hearing. She had her extensive vascular interventional radiology procedure yesterday with presumably quite a bit of contrast. Urine output is good, vital signs stable, and BUN unchanged the creatinine did go up a little bit. I am not clear how high up the aortic stent goes but the leg that was cooler on the right than the left yesterday is now warmer on the right. I do not know if there is some residual left-sided atherosclerosis or whether this hyperemia is following previous ischemia. Antibiotic Ordered?: Yes Subjective Subjective She says the leg is quite painful. Objective Vitals Vital Signs Date Time Temp Pulse Resp B/P (MAP) Pulse Ox O2 Delivery O2 Flow Rate FiO2 03/27/25 07:29 70 03/27/25 07:00 15 112/42 (65) 93 Nasal Cannula 3.0 03/27/25 02:00 96.8 03/24/25 17:37 44 Lab Results: 03/27/25 0200 03/27/25 0200 Coagulation Studies Laboratory Tests Test 03/24/25 03:09 03/26/25 12:00 03/27/25 02:00 Activated Partial Thromboplast Time 45 SECONDS (22-32) H APTT (Heparin Protocol) 70 SECONDS (45-60) H Prothrombin Time 15.6 SECONDS (9.0-12.0) H INR International Normalized Ratio 1.6 INR Coagulation Comments HEART Score I & O 03/27/25 07:00 Intake Total 818.97 ml Output Total 1130 ml Balance -311.03 ml Intake Oral 280 ml IV Total 238.97 ml Blood Product 300 ml Output Urine Total 1130 ml Problem\Assessment\Plan Additional Plan She appears euvolemic, so I will not do any additional supplement at this point. She has no uremic symptoms. ROMEO FELIZ MD March 27, 2025 08:28
--- NOTE | 2025-03-27 09:43 | PROGRESS NOTE- Residence ---
Progress Note - Resident Providers to CC Resident Creating Document: NIKITA HOOKER RES CC: ROMEO FELIZ MD ~ Central Line/PICC still needed: Yes Central Line/PICC Necessity: Prolonged IV access req Hendrickson-Non Protocol Hendrickson Indications Met/Not Met: F/C Indications Met Antibiotic Timeout Antibiotic Ordered?: No Subjective Patient is seen this morning. She had undergone stenting of the right lower extremity yesterday. She reported improvement in pain and coldness of the right lower extremity. No other complaints. Objective Vital Signs Date Time Temp Pulse Resp B/P (MAP) Pulse Ox O2 Delivery O2 Flow Rate FiO2 03/27/25 09:00 80 17 114/57 (76) 92 Nasal Cannula 3.0 03/27/25 02:00 96.8 03/24/25 17:37 44 Result Diagram: 03/27/25 02003/27/25199 Elderly female, AAO x3, not in apparent distress Head: Normocephalic with an atraumatic Eyes: Pupils- 3mm, reacting to light, conjunctiva- anicteric Nose and throat: No polyps, septum- normal, no mucosal ulcers Neck: Supple, no lymphadenopathy, no carotid bruit Respiratory: No use of accessory muscles of respiration, Bilateral normal vesiscular breath sounds heard. No wheeze, rhochi or creps Cardiac: S1-S2 heard, rhythm regular, systolic murmur at the mitral region Abdomen: non distended, no tenderness, no organomegaly, bowel sounds - heard Extremities: right foot warm, , right dorsalis pedis-palpable Skin: warm and dry, no rash, no purpura Neuro: No focal deficit, gross cranial nerve exam - normal Coagulation Studies Laboratory Tests Test 03/24/25 03:09 03/26/25 12:00 03/27/25 02:00 Activated Partial Thromboplast Time 45 SECONDS (22-32) H APTT (Heparin Protocol) 70 SECONDS (45-60) H Prothrombin Time 15.6 SECONDS (9.0-12.0) H INR International Normalized Ratio 1.6 INR Coagulation Comments Assessment Assessment 79-year-old female with past medical history of type 1 dm, HTN, CAD s/p CABG, PAD s/p stent to [facility], dementia came as a transfer from [facility] for intervention for abdominal aorta. Is having right lower limb acute limb ischemia with severe atherosclerosis of abdominal aorta. History of ATN needing dialysis from 03/13 to 03/15 at [facility]. Nephrology is consulted for evaluation of the need for possible dialysis Plan Plan JUAN JOSÉ on CKD -JUAN JOSÉ likely ATN secondary to sepsis, hypotension, CKD secondary to diabetes, hypertension -baseline creatinine 1.33 -at the time of admission to [facility] creatinine was 2.29 which came down to 1.6 after HD -creatinine trended upto 3.2 at the time of discharge from [facility] -cr down trending-3.1>2.95>>2.9>.3.02>> 2.82>> 2.85> 0.88>> 2.92>> 3.01 -urine output 1090 cc PLAN -monitor map above 65, -right IJ karlene cath placed -no need for HD today, as she appears euvolemic and is having good uop Hypomagnesemia -magnesium improved to 1.8 Hyperphosphatemia phos-4.9 -continue PhosLo t.i.d. hyponatremia -imporved to 135 -monitor BMP q.6 Normocytic anemia H&H-8.7/26 Serum iron low, TIBC low, TSAT 10, ferritin 835 monitor H and H, Thank you for interesting consult. We will continue to follow the patient along with you Attending attestation to follow Nikita Hooker MD IM resident Date of Service: March 27, 2025 Billing Provider: ROMEO FELIZ MD, HARIVARSHA, RES March 27, 2025 09:43
[2025-03-27] MEDS: ascorbic acid 500mg tablet PO SCH (15:05)
[2025-03-27] MEDS: polyethylene glycol 3350 17gm powd pack PO SCH (15:05)
[2025-03-27] MEDS: ferrous sulfate 325mg tablet PO SCH (15:06)
--- NOTE | 2025-03-27 15:19 | PROGRESS NOTE- Residence ---
Progress Note - Resident Providers to CC Resident Creating Document: LESLI WASSERMAN, CHRISTIANA ~ Central Line/PICC still needed: No Hendrickson-Non Protocol Hendrickson Indications Met/Not Met: F/C Indications Met Antibiotic Timeout Antibiotic Ordered?: Yes Subjective Patient goes in and out of her alertness but answers questions appropriately regarding her medical conditions. Reports improvement in pain. No acute overnight events Objective Vital Signs Date Time Temp Pulse Resp B/P (MAP) Pulse Ox O2 Delivery O2 Flow Rate FiO2 03/27/25 14:00 84 24 141/59 (86) 92 Nasal Cannula 3.0 03/27/25 02:00 96.8 03/24/25 17:37 44 Result Diagram: 03/27/2519903/27/25 020 General: Awake HEENT: Conjunctiva pale, Sclera clear, Mucus Membranes moist. Resp: Unlabored. Diminished left basilar breath sounds. Right sided breath sounds normal Heart: Regular rate and rhythm, pansystolic aortic murmur present Abdomen: Soft and non tender no organomegaly Extremities: 2+ right-sided edema. Improvement in temperature of the right leg with decreased temperature only at the level of the toes. Chronic nonhealing foot wound on the 3rd toe. Pedal pulses are mildly dopplerable on the right leg at the level of posterior tibial artery. Skin: Warm and Dry. Coagulation Studies Laboratory Tests Test 03/24/25 03:09 03/26/25 12:00 03/27/25 02:00 Activated Partial Thromboplast Time 45 SECONDS (22-32) H APTT (Heparin Protocol) 70 SECONDS (45-60) H Prothrombin Time 15.6 SECONDS (9.0-12.0) H INR International Normalized Ratio 1.6 INR Coagulation Comments Assessment Assessment 79-year-old female with past medical history of type 1 dm, HTN, CAD s/p CABG, PAD s/p stent to [facility], dementia came as a transfer from [facility] for intervention for abdominal aorta. Is having right lower limb acute limb ischemia with severe atherosclerosis of abdominal aorta. History of ATN needing dialysis from 03/13 to 03/15 at [facility]. Nephrology is consulted for evaluation of the need for possible dialysis Plan Plan 1. Acute limb ischemia: POA Right lower limb ischemia Chronic PAD History of left/right iliac stent IR angiogram completed on Mar 21 2025 showing single-vessel runoff right lower extremity. Small caliber abdominal aorta. Transferred to [facility] for balloon angioplasty of the aorta per discharge note. - S/p aortic stent today on 03/24/25 - Continues to be on the heparin drip - Plan for Right popliteal and SFA stent on - Continue plan as per ICU, cardiology and vascular surgery - Pain management with morphine and dilaudid 03/25/2025: Patient comfortable after the aortic stent yesterday. Interval improvement in pain - plan for SFA stent tomorrow - continuing heparin drip 03/26/2025: Status post SFA stenting today - Interval improvement in pain significantly - off of the heparin drip. 03/27/2025: Patient is stable with no acute complaints. 2. Atrial fibrillation with RVR 03/23/25: The patient is currently in the ICU. Received 150 mg IV amiodarone. Currently on the drip. 03/24/25: currently rate controlled and on the amiodarone drip HR around 90's but still in afib 03/25/2025: Continues to be in the amiodarone drip - rate controlled but in AFib - anticoagulated with heparin 03/26/2025: Stopped amiodarone drip - currently in sinus rhythm, rate in the 70s - stopped heparin drip 3. Septic shock: POA Likely secondary to community-acquired pneumonia UTI 03/23/25: Patient currently on Levophed drip. WBC trended up from 12.91 on 03/09/2025 to 33.2 today. Elevated procalcitonin and lactic acid. The patient received eight days of cefepime 1 g IV daily, nine days of doxycycline 100 mg twice daily p.o., four days of vancomycin 500 mg IV daily. Was receiving ceftriaxone 2 g daily IV and metronidazole 500 mg IV thrice daily before she was discharged from [facility]. Both started on 03/21/2025. Continue ceftriaxone. Rule out C diff. Patient complained of loose stools. 03/24/25: WBS's sustained in the high 30,000's No febrile episodes recorded Continues to be on low dose norepi drip 03/25/2025: - minimal improvement in leukocytosis - blood cultures continued to be negative - urine culture from the Hendrickson's catheter positive for Keshia; contaminant - continue management with antibiotics as per ICU 03/26/2025: Successfully weaned off of the Levophed drip - blood pressure with a map above 70s, systolic 130's - white count trending down 03/27/2025: White count still in the [address] -Continuing Rocephin - plan to transferred back to [facility] for further management 4. Acute on chronic kidney failure CKD stage 3 Hyperphosphatemia 03/23/25: Patient underwent dialysis for 2 days at [facility]; Wiliam catheter removed Currently GFR is 15, creatinine 3.01, BUN 88. Consider nephrology consultation for possible dialysis. The patient was receiving calcium acetate 667 mg thrice daily with meals. Continue with the same. 03/24/25: Nephrology following the patient 03/25/2025: - Wiliam cath placed today for possible dialysis starting tomorrow - patient was started on Lasix drip last night - monitor I&O through Hendrickson's catheter; as per EMR, retaining 2509 mL of fluid 03/26/2025: Wiliam cath placed but no plan for dialysis. - as per Nephrology, we will continue watching patient's renal function at this time 03/27/2025: Nephrology we will continue to follow with no requirement of dialysis at this time 5. Acute on chronic Heart failure with preserved EF: The patient underwent thoracentesis with removal of 300 mL of serous fluid on 03/12/2025. Echocardiogram showed LVEF of 55-60%. Mild AR, tgyqtgsn-da-[id number] MR, zerm-fm-yewdkuco TR. 03/25/2025: -IV Lasix drip started last night -ProBNP greater than 887[address] -Continue monitoring I&O -Fluid restriction 6. Type 1 DM: On hyperlgycemia/hypoglycemia protocol 7. New onset anemia: Normocytic and normochromic Hemoglobin 6.5 Status post 1 unit PRBC transfusion No current operative records to assess for intraoperative blood loss No abdominal pain noted Insertion site with no hematoma formation Code Status: Full code DVT Prophylaxis: None at the moment Prognosis: Guarded Disposition: Continue care in the ICU. Plan for discharge back to [facility] Lesli Wasserman PGY1, Internal medicine resident Date of Service: March 27, 2025 Billing Provider: MEAGHAN KU MD Common Visit Codes: [id number] INP/OBS CARE(HIGH) LESLI WASSERMAN RES March 27, 2025 15:19 MEAGHAN KU MD March 27, 2025 22:10
--- NOTE | 2025-03-27 18:42 | PROGRESS NOTE- Residence ---
Progress Note - Resident Providers to CC Resident Creating Document: TEODORO ROJAS BELÉN, RES ~ Antibiotic Timeout Antibiotic Ordered?: Yes Subjective Patient seen and examined at the bedside today. She stated that the pain in her right lower extremity improved but continues to have some in the 2nd toe of the right foot. Denied any other concerns or complaints at the moment. Objective Vital Signs Date Time Temp Pulse Resp B/P (MAP) Pulse Ox O2 Delivery O2 Flow Rate FiO2 03/27/25 18:03 79 19 136/52 (80) 92 Nasal Cannula 3.0 03/27/25 02:00 96.8 03/24/25 17:37 44 Result Diagram: 03/27/2519903/27/25199 Elderly female, alert and oriented, not in acute distress Head: Normocephalic with an atraumatic Eyes: Pupils- 3mm, reacting to light, conjunctiva- anicteric Nose and throat: No polyps, septum- normal, no mucosal ulcers Neck: Supple, no lymphadenopathy, no carotid bruit Respiratory: No use of accessory muscles of respiration, Bilateral normal vesiscular breath sounds heard. No wheeze, rhochi or creps. On 4 L oxygen via nasal cannula. Cardiac: S1-S2 heard, rhythm regular, systolic murmur at the mitral region Abdomen: non distended, no tenderness, no organomegaly, bowel sounds - heard Extremities: Right foot appears to be warm. Femoral pulses noted the right. Right dorsalis pedal pulse positive with a Doppler. Skin: warm and dry, no rash, no purpura Neuro: No focal deficit, gross cranial nerve exam - normal Coagulation Studies Laboratory Tests Test 03/24/25 03:09 03/26/25 12:00 03/27/25 02:00 Activated Partial Thromboplast Time 45 SECONDS (22-32) H APTT (Heparin Protocol) 70 SECONDS (45-60) H Prothrombin Time 15.6 SECONDS (9.0-12.0) H INR International Normalized Ratio 1.6 INR Coagulation Comments Assessment Assessment 79-year-old female past medical history of dementia, hypertension, type 1 diabetes mellitus, coronary artery disease status post CABG, peripheral artery disease was transferred from [facility] for evaluation and management of acute right lower limb ischemia. The patient underwent abdominal aorta stenting on 03/24/2025 and angiogram of the right lower extremity yesterday. Was admitted in the ICU for management of septic shock and was initially treated with IV pressors. The patient has been weaned off of pressors. She has a remained hemodynamically stable. Plan Plan Peripheral artery disease Acute right lower extremity ischemia IR angiogram on 03/21/2025 showed afeline, small caliber abdominal aorta, similar in size to superior mesenteric artery. No significant iliac inflow disease. Both profunda femoris arteries are patent. Single vessel right calf runoff via peroneal artery, two vessel left calf runoff via peroneal and anterior tibial arteries. Patient underwent cardiac angiogram and abdominal aorta stent placed 03/24/2025. The patient underwent right lower extremity angioplasty on 03/26/2025. She has been off off IV heparin drip after procedure. Patient is on Plavix 75 mg p.o. daily, atorvastatin 10 mg p.o. daily and aspirin 81 mg p.o. daily. Pain management with IV morphine and Dilaudid. Septic shock secondary to community-acquired pneumonia The patient received eight days of cefepime 1 g IV daily, nine days of doxycycline 100 mg twice daily p.o., four days of vancomycin 500 mg IV daily. Blood cultures-no growth after one day. Currently started the patient on IV ceftriaxone 2 g daily and IV levofloxacin 500 mg daily. The patient has been successfully weaned off of pressors. Urine culture growing Keshia albicans. Started the patient on the fluconazole 200 mg p.o. daily. Paroxysmal atrial fibrillation Currently rate controlled Discontinued IV amiodarone drip. Started the patient on p.o. amiodarone 400 mg b.i.d. JUAN JOSÉ on CKD The most likely cause of the patient's JUAN JOSÉ is ATN secondary to septic shock. The patient was started on dialysis at [facility]. Dialysis was discontinued as the patient's renal function recovered. The patient's creatinine continues to be stable. The patient's BUN and creatinine are trending up, they are 81 and 3.16 today. Nephrology has been consulted. We will follow up as per the recommendation. Wiliam cath in place. Dialysis as per Nephrology recommendation. Hyperphosphatemia Phosphate 5.0 On PhosLo t.i.d.. Hypomagnesemia Magnesium 1.8 today. We will replace magnesium per protocol. Type 1 DM: On hyperlgycemia/hypoglycemia protocol NSTEMI versus type 2 MD The patient's troponin at the time of admission is 864. [facility] and anterior septal ischemia. Management per gang sawyer. IV heparin discontinued. On aspirin, Plavix and atorvastatin. Normocytic anemia Iron study showing iron deficiency anemia. Started the patient on ferrous sulfate 325 mg p.o. t.i.d. and vitamin-C. Continue H&H monitoring. CODE STATUS: Full code DVT prophylaxis: IV heparin- discontinued today Prognosis: Guarded Disposition: The patient has been successfully weaned off of pressors. He has been hemodynamically stable. The patient can be downgraded from the ICU to PCU level of care. The patient is also planned to be transferred back to [facility]. Teodoro Rojas MD Internal Medicine Resident, PGY-2 Date of Service: March 27, 2025 Billing Provider: SANDRA RUGGIERO MD,TEODORO MELISSA, RES March 27, 2025 18:42
[2025-03-28 02:00] VITALS: BP 111/64; PULSE 73; RESP 18; TEMP 97.4; O2SAT 96
[2025-03-28] MEDS: normal saline 500ml IV soln 500 ML IV ONE (03:41)
[2025-03-28 06:00] VITALS: BP 120/39; PULSE 77; RESP 16; TEMP 97.7; O2SAT 90
[2025-03-28 06:15] LABS: BASOPHILS % (AUTO) 0.2 % (0-1); EOSINOPHILS % (AUTO) 0.2 % (0-6); HEMATOCRIT 24.8 % (35.0-45.0); HEMOGLOBIN 8.3 g/dl (12.0-16.0); INR 1.6 INR; LYMPHOCYTES # (AUTO) 0.7 X10'3 (1.1-4.8); LYMPHOCYTES % (AUTO) 3.2 % (21-51); MEAN CORPUSCULAR HEMOGLOBIN 29.6 PG (27.0-31.0); MEAN CORPUSCULAR HGB CONC 33.5 g/dL (33.0-36.5); MEAN CORPUSCULAR VOLUME 88.3 FL (78-98); MEAN PLATELET VOLUME 9.6 FL (7.4-10.4); MONOCYTES # (AUTO) 0.9 X10'3 (0-0.9); MONOCYTES % (AUTO) 4.5 % (2-12); NEUTROPHILS # (AUTO) 18.7 X10'3 (1.8-7.7); NEUTROPHILS % (AUTO) 91.9 % (42-75); PLATELET COUNT 188 X10'3 (140-440); PROTHROMBIN TIME 15.5 SECONDS (9.0-12.0); RED BLOOD COUNT 2.81 X10'6 (4.20-5.60); RED CELL DISTRIBUTION WIDTH 15.3 % (11.5-14.5); WHITE BLOOD COUNT 20.4 X10'3 (4.5-11.0)
[2025-03-28 06:21] LABS: ALANINE AMINOTRANSFERASE 43 U/L (12-78); ALBUMIN 1.7 G/DL (3.4-5.0); ALBUMIN/GLOBULIN RATIO 0.5 (1.1-1.5); ALKALINE PHOSPHATASE 213 IU/L (46-116); ANION GAP 18 (8-16); ASPARTATE AMINO TRANSFERASE 26 U/L (10-37); BILIRUBIN,TOTAL 0.3 MG/DL (0.1-1.0); BLOOD UREA NITROGEN 84 MG/DL (7-18); BUN/CREATININE RATIO 26.2 (10.0-20.0); CALCIUM 8.1 MG/DL (8.5-10.1); CHLORIDE 98 MMOL/L (99-107); CREATININE 3.21 MG/DL (0.40-0.90); GLUCOSE 81 MG/DL (70-104); MAGNESIUM 1.6 MG/DL (1.5-2.4); PHOSPHORUS 4.2 MG/DL (2.3-4.5); POTASSIUM 3.6 MMOL/L (3.5-5.1); SODIUM 137 MMOL/L (135-145); TOTAL CARBON DIOXIDE 21.1 MMOL/L (24-32); TOTAL PROTEIN 5.3 G/DL (6.4-8.2); eCRCL 10 ML/MIN; eGFR 14 ML/MIN
[2025-03-28 08:00] VITALS: RESP 16; O2SAT 91
--- NOTE | 2025-03-28 09:43 | RADIOLOGY REPORT ---
EXAM: XR Chest, 1 View CLINICAL INDICATION: SOB TECHNIQUE: Frontal view of the chest. COMPARISON: DI CHEST,SINGLE VIEW on DOS: 03/25/25, DI CHEST,SINGLE VIEW on DOS: 03/24/25, DI CHEST,SING LE VIEW on DOS: 03/23/25 FINDINGS: LUNGS AND PLEURAL SPACES: Bilateral pleural effusions. HEART: Cardiomegaly with pulmonary congestion and edema. Superimposed pneumonia cannot be excluded. MEDIASTINUM: Unremarkable. Normal mediastinal contour. BONES/JOINTS: Unremarkable. No acute fracture. TUBES, LINES AND DEVICES: Left internal jugular central venous catheter tip in the superior vena ca va. OTHER FINDINGS: . . IMPRESSION: 1. Cardiomegaly with pulmonary congestion and edema. Superimposed pneumonia cannot be excluded. 2. Bilateral pleural effusions.
[2025-03-28] MEDS: dextrose 5%-normal saline 1,000 ML IV SCH (10:24)
[2025-03-28 10:51] LABS: ANISOCYTOSIS FEW; PLATELET ESTIMATE NORMAL; TOTAL CELLS COUNTED 100
[2025-03-28 10:52] LABS: BURR CELLS 1+; HYPOCHROMASIA 1+; POLYCHROMASIA FEW; TARGET CELLS FEW; TOXIC GRANULATION 1+
[2025-03-28 11:03] LABS: ALBUMIN 1.8 G/DL (3.4-5.0); ANION GAP 17 (8-16); BLOOD UREA NITROGEN 88 MG/DL (7-18); CALCIUM 8.5 MG/DL (8.5-10.1); CHLORIDE 99 MMOL/L (99-107); CREATININE 3.26 MG/DL (0.40-0.90); GLUCOSE 116 MG/DL (70-104); SODIUM 136 MMOL/L (135-145); TOTAL CARBON DIOXIDE 20.4 MMOL/L (24-32); eCRCL 10 ML/MIN; eGFR 14 ML/MIN
[2025-03-28] MEDS: linezolid 600mg/300ml PREMIX 300 ML IV SCH (14:15)
[2025-03-28] MEDS: piperacillin/tazo 4.5gm/100ml 100 ML IV SCH (14:25)
--- NOTE | 2025-03-28 14:37 | DISCHARGE SUMMARY-Residence ---
Discharge Summary Providers to CC Resident Creating Document: HERBERTCHACORTALESIL RES ~ Discharge Summary Admission Diagnosis: Acute limb ischemia, pneumonia, CHF Hospital Course DATE OF ADMISSION: 03/23/2025 DATE OF DISCHARGE: 03/28/2025 Discharge Diagnosis\Comment: Acute right lower limb ischemia: Status post aortic stent 03/24/2025 and status post right lower limb stent on 03/26/2025 AFib with RVR Septic shock secondary to community-acquired pneumonia: Weaned off of pressors; on 3 L oxygen NC Acute on chronic CKD; temporary dialysis dependent Acute on chronic heart failure with preserved EF Type 1 diabetes mellitus Normocytic and normochromic new onset anemia Operations\Procedures: Right lower limb stent and aortic stent Consultants: Cardiology Complications: None Condition on DC: Stable for transfer Discharge Summary: 79-year-old female patient with a past medical history of type 1 diabetes mellitus, hypertension, CAD status post CABG, and PAD status post stent to the [facility] presents to the hospital as a transfer from [facility] for management of acute limb ischemia while at [facility]. The patient was admitted to [facility] for septic shock secondary to community-acquired pneumonia, she completed eight days of cefepime 1 g IV daily, nine days of doxycycline 100 mg twice daily and four days of vancomycin 500 mg IV daily at [facility]. Procalcitonin significantly elevated at 44 during admission here as well. Blood cultures remained negative for five days. She was admitted to ICU for vasopressors. She was maintained on norepinephrine drip and was slowly tapered off on 03/25/2025 and did not required to be started back on it. Antibiotics were switched to IV Rocephin and Flagyl which she continued. She also presented with atrial fibrillation with RVR requiring amiodarone drip which was also tapered off on the 03/25/2025. As she was transferred for the peripheral arterial disease repair, the patient was maintained on the heparin drip which was also maintaining anticoagulation for the AFib. She remained rate controlled. Dr. Dhillon performed an aortic stent in the 03/24/2025, continue to meet her in the heparin drip and performed the right popliteal in the SFA stent on the 03/25/2025. Postoperatively patient recovered well. However, she continued to get progressively altered through the next few days. Nephrology was following the patient at [facility] as she required empty dialysis at [facility]. The Wiliam catheter was required to be placed again in our hospital but was never used as she did not require dialysis here. As she is stabilized and was weaned off of all the drips, she was transferred to the floor from ICU. The patient's baseline mentation has always been in and out of mild cognitive impairment but on the day of discharge, the patient significantly worsened in terms of mentation. Review of labs revealed uremia at 84. Due to also consistent elevation in white count without decrease, Infectious diseases, Dr. Sewell was consulted who switched her antibiotics to Zosyn and Zyvox. A venous Doppler was also ordered by Dr. Sewell. As the patient is going back to [facility], Nephrology we will follow her there. Hence, the patient was being discharged back to [facility] for further care. Advised at discharge: - nephrology evaluation for dialysis - TDC catheter placement - Dr. Sewell reconsult at [facility] - NPO until swallow eval Physical exam at discharge: General: Somnolent. Incoherent speech HEENT: Conjunctiva pink, Sclera clear, Mucus Membranes dry. Resp: Right-sided coarse crepitations throughout the lung rice Heart: Regular Rate and rhythm, normal S1 and S2 without murmur, rub or gallop. Abdomen: Soft and non tender no organomegaly Extremities: 2+ right-sided edema. Improvement in temperature of the right leg with decreased temperature only at the level of the toes. Chronic nonhealing foot wound on the 3rd toe. Pedal pulses are mildly dopplerable on the right leg at the level of posterior tibial artery. Skin: Warm and Dry. Labs at discharge: WBC 20.4, RBC 2.8, hemoglobin 8.3, platelets 188 Sodium 136, potassium 4.0, chloride 99, bicarb 20.4, anion gap 17, BUN 88, creatinine 3.26, glucose 116, albumin 1.8 Procalcitonin 2.3 *Problems/Diagnosis: (1) Peripheral arterial disease Status: Acute Total Time Spent on D/C: > 30 Minutes Date of Service: March 28, 2025 Billing Provider: MEAGHAN KU MD Common Visit Codes: 72086-ELZ/OBS DISCH DAY >30min LESLI WASSERMAN RES March 28, 2025 14:36 MEAGHAN KU MD March 28, 2025 21:10
--- NOTE | 2025-03-28 16:24 | VASCULAR REPORT ---
CLINICAL HISTORY: Right leg swelling. COMPARISON: None TECHNIQUE: Compression evaluation and color doppler evaluation of the deep veins of the right lower e xtremity was performed. Evaluation for augmentation and flow characteristics with doppler pulse wave imaging was performed. Realtime grayscale and Doppler ultrasound images of the deep venous structures with spectral waveform analysis were obtained. FINDINGS: Technically difficult examination due to the patient's clinical condition. This examination demonstrates normal compression, augmentation, and phasic flow of the right lower extremity. No evid ence for echogenic thrombus within the right common femoral, femoral, and popliteal veins. The steam shovel engineer ior tibial veins demonstrated normal compression and color flow at the level of the calf. Contralater al left common femoral vein was not evaluated due to the patient's condition. IMPRESSION: There is no evidence for DVT in the right lower extremity.
[2025-03-29] MEDS ORDERED: pantoprazole 40mg Tablet.DR PO SCH (07:30)
--- NOTE | 2025-03-29 18:10 | CARDIOLOGY REPORT ---
DATE OF SERVICE: 03/24/2025 DICTATING PHYSICIAN: Renea Dhillon MD DATE OF STUDY: 03/24/2025 PROCEDURES: * Access to the right common femoral artery. * Selective catheter placement in the abdominal aorta and abdominal and aortoiliac artery angiography. * Selective catheter placement in the ipsilateral right external iliac artery and selective right lower extremity artery angiography. * Angioplasty of the infrarenal abdominal aorta. * Stenting x 1 of the infrarenal abdominal aorta. * Conscious sedation monitoring time for 30 minutes. INDICATION: Acute limb ischemia. PHYSICIAN: Renea Dhillon MD DESCRIPTION OF PROCEDURE: After informed consent was obtained, the patient was brought to the lab where she was prepped and draped in the usual sterile fashion. After adequate anesthesia was obtained using 1% lidocaine to the right groin, an 8-Tamazight sheath was inserted into the right femoral artery. Thereafter, the catheter was advanced over a 0.035 wire into the infrarenal abdominal aorta and angiography of the abdominal aorta and aortoiliac arteries were performed. Next, revascularization of the infrarenal abdominal aorta was performed as described below. Following revascularization of the infrarenal abdominal aorta, the catheter was pulled back to the ipsilateral right external iliac artery and selective angiography of the right lower extremity was performed. HEMODYNAMICS: For the patient's hemodynamics, please refer to the event log. FINDINGS: * The patient's intrarenal abdominal aorta is calcified with moderate to significant stenosis. The abdominal aorta is a small caliber vessel. * Mild to moderate disease of the iliac arteries. * The right superficial femoral artery has mild to moderate disease at the adductor canal. High-grade stenosis of the proximal popliteal artery is noted and the popliteal artery is occluded in its mid portion. Minimal trickle flow down the peroneal artery is noted. * Percutaneous transluminal angioplasty/stenting. Using an 8-mm balloon, angioplasty of the infrarenal abdominal aorta to rated burst atmospheres was performed. Next, using a 10 x 60 mm balloon, angioplasty of the infrarenal abdominal aorta was then performed. The patient had discomfort during balloon inflation indicating an appropriate size to stent. A 10 x 60 mm stent was then used and advanced to the infrarenal abdominal aorta where the aorta was stented. This was then post dilated with a 10-mm balloon. Follow-up angiography revealed excellent angiographic results. IMPRESSION: * Angioplasty/stenting of a small caliber calcified infrarenal abdominal aorta with a 10 x 60 mm stent with very good angiographic results. * The patient has an occluded right popliteal artery with minimal flow. She will require revascularization via the left groin. Renea Dhillon MD TID: [id number] RECEIPT: [id number] JUANA/ALICIA
--- NOTE | 2025-03-29 18:15 | CARDIOLOGY REPORT ---
DATE OF SERVICE: 03/26/2025 DICTATING PHYSICIAN: Renea Dhillon MD DATE OF STUDY: 03/26/2025. PROCEDURES: * Access to the left common femoral artery. * Selective catheter placement in the contralateral right external iliac artery and selective right lower extremity artery angiography. * Angioplasty of the contralateral right peroneal artery. * Angioplasty of the contralateral right TP trunk. * Angioplasty of the contralateral right popliteal artery. * Angioplasty of the contralateral right superficial femoral artery. INDICATION: Acute limb ischemia. PHYSICIAN: Renea Dhillon MD DESCRIPTION OF PROCEDURE: After informed consent was obtained, the patient was brought to the lab where she was prepped and draped in the usual manner. A 6-Telugu sheath was inserted into the left femoral artery. Over a 0.035 wire, the pigtail catheter was advanced to the contralateral right external iliac artery and the sheath over the catheter. The catheter and wire were removed and selective angiography of the right lower extremity was performed. Revascularization was then performed as described below. Using a 4-Telugu glide catheter and glidewire, the occluded high-grade right popliteal artery was crossed. A 0.014 wire was then navigated into the peroneal artery. Using a 2.0 x 100 mm balloon followed by a 2.5 mm balloon, followed by a 3.0 and 4.0 mm balloon, angioplasty of the peroneal artery, the TP trunk, and the popliteal and superficial femoral artery was performed. Followup angiography revealed very good results. Single-vessel runoff. The peroneal artery tapers at the ankle but supplies collaterals to the foot. IMPRESSION: Angioplasty of a totally occluded right popliteal artery, TP trunk, and peroneal artery, and angioplasty of the superficial femoral artery with fairly good angiographic results. The peroneal artery tapers at the ankle but supplies collaterals to the dorsalis pedis artery. Renea Dhillon MD TID: [id number] RECEIPT: [id number] JUANA/ASHANTI
--- NOTE | 2025-03-29 22:02 | CONSULTATION ---
DATE OF CONSULTATION: 03/28/2025 DICTATING PHYSICIAN: Baltazar Sewell MD REASON FOR CONSULTATION: I am seeing the patient at the request of Dr. Pan for evaluation of pneumonia and encephalopathy. HISTORY OF PRESENT ILLNESS: The patient is a 79-year-old female with cognitive impairment of unclear severity along with diabetes mellitus, who was transferred to this facility on 03/23 from [facility] to undergo percutaneous intervention at the right lower extremity. According to the chart, she was admitted to [facility] about 2 weeks prior to her transfer here. She apparently had a fall at home with increasing confusion. I do not believe she is dialysis dependent at baseline. She initially spent time in the ICU at [facility]. She was started on dialysis at that facility and apparently received several sessions. Since coming to [facility], she has not received dialysis. She apparently had an angiogram done at [facility] that showed some impaired flow at the right lower extremity and she was sent here to undergo percutaneous intervention with Dr. Dhillon. I believe that was completed a few days ago. According to the notes, intervention involved a small caliber abdominal aorta. She apparently had a stent placed at that site and also had a stent placed at the superficial femoral artery on the right side. I am unable to see the procedure notes. Of note, while she was at [facility], she was apparently treated with a number of antibiotics. There is mention of an 8-day course of cefepime along with 9 days of doxycycline and 4 days of vancomycin. For some reason, she was later treated with ceftriaxone and metronidazole. She remains on ceftriaxone at this time, but her white blood cell count is still up in the 20,000 range. Procalcitonin is also elevated, but she has no fever. She remains confused and she does have family at the bedside. She apparently pulled out her right IJ temporary dialysis catheter last night. She does have a left IJ central venous catheter in place. She is currently in restraints. PAST MEDICAL HISTORY: * Diabetes mellitus with a hemoglobin A1c of around 8%. * Cognitive impairment of unclear severity. * Peripheral arterial disease with a history of percutaneous intervention. * Coronary artery disease with a history of coronary artery bypass grafting. * Dyslipidemia. * Hypertension. ALLERGIES: None. MEDICATIONS: * Ceftriaxone. * Vitamin C. * Ferrous sulfate. * MiraLax. * Amiodarone. * Pantoprazole. * Humalog. * Calcium acetate. * Metoprolol. * Aspirin. * Amlodipine. * Memantine. * Clopidogrel. * Atorvastatin. * Insulin glargine. FAMILY HISTORY: Noncontributory. SOCIAL HISTORY: She is and lives in [place]. She does not smoke or drink alcohol. I have actually taken care of her in the past. PHYSICAL EXAMINATION: VITAL SIGNS: She is afebrile with stable vital signs, currently on 5 liters. GENERAL: She is an elderly female, currently lying in bed, confused. She does not respond to questions appropriately. She is currently in restraints. HEENT: Sclerae anicteric. Mouth is difficult to examine. NECK: She has a left internal jugular central venous catheter in place. LUNGS: Reveal some scattered bilateral crackles. HEART: Regular rate and rhythm. ABDOMEN: Soft without significant distention or tenderness. EXTREMITIES: She does have some edema at the right lower extremity, but the foot is warm. The left leg appears to be stable. LABORATORY DATA: Her white blood cell count is 20,400, hemoglobin 8.3, platelets are 188,000. Her creatinine is 3.26. Procalcitonin 2.3. Blood cultures are pending. MRSA screen was negative. Chest x-ray demonstrates bilateral pulmonary opacities that seem to be more prominent involving the right lung at the mid lung field. The upper lung rice are fairly clear. She does have bibasilar opacities. Renal ultrasound with no evidence of hydronephrosis. IMPRESSION: * Persistent leukocytosis and elevated procalcitonin. * Possible hospital-acquired pneumonia. I believe she has been in the hospital for nearly 3 weeks and she has received a number of antibiotics. She does have an oxygen requirement at this time and it is difficult to tell if this is from pneumonia or volume overload. * Acute kidney injury with creatinine in the 3 range. She was dialyzed when she was at [facility], but she has not been dialyzed since she has come here. * Peripheral arterial disease, status post percutaneous intervention involving the aorta and the right superficial femoral artery. Once again, I have not seen the actual procedure notes. * Persistent encephalopathy that is likely multifactorial. She apparently has some cognitive impairment at baseline and renal failure and infection may be playing a role. PLAN: I am going to stop ceftriaxone. She will be started on broad-spectrum therapy with linezolid and Zosyn. We will follow her white blood cell count as well as her procalcitonin. I am going to review records at [facility]. I am also going to check a right lower extremity venous duplex ultrasound to rule out DVT given asymmetric swelling. I will continue to follow her closely and I thank you for allowing me to participate in her care. 80 minutes time spent [id number], review of medical record including labs/cultures/imaging, review of [facility] record, orders and documentation. Baltazar Sewell MD TID: [id number] RECEIPT: [id number] JULIAN/WENCESLAO CORTEZ
== END 2025-03-28 15:30 | disposition short-term general hospital (02) | DRG 853 ==
LOC: PCU 3S 13:30 → UNDOADMIN 13:30 → PCU 3S 19:00 → CICU 2S 03-24 02:41 → PCU 3S 03-27 19:30
PROVIDERS: ADMIT Family Medicine; ATTEND Surgery Surgical Critical Care
PROC: 04703DZ Dilation of Abdominal Aorta with Intraluminal Device, Percutaneous Approach (ICD-10-PCS; principal; 2025-03-24)
PROC: B41F1ZZ Fluoroscopy of Right Lower Extremity Arteries using Low Osmolar Contrast (ICD-10-PCS; 2025-03-24)
PROC: 02HV33Z Insertion of Infusion Device into Superior Vena Cava, Percutaneous Approach (ICD-10-PCS; 2025-03-25)
PROC: B548ZZA Ultrasonography of Superior Vena Cava, Guidance (ICD-10-PCS; 2025-03-25)
PROC: 047T3ZZ Dilation of Right Peroneal Artery, Percutaneous Approach (ICD-10-PCS; 2025-03-26)
PROC: 047M3ZZ Dilation of Right Popliteal Artery, Percutaneous Approach (ICD-10-PCS; 2025-03-26)
PROC: 047K3ZZ Dilation of Right Femoral Artery, Percutaneous Approach (ICD-10-PCS; 2025-03-26)
PROC: 047R3ZZ Dilation of Right Posterior Tibial Artery, Percutaneous Approach (ICD-10-PCS; 2025-03-26)
PROC: 30233N1 Transfusion of Nonautologous Red Blood Cells into Peripheral Vein, Percutaneous Approach (ICD-10-PCS; 2025-03-26)
DX: A41.9 Sepsis, unspecified organism (principal); I21.4 Non-ST elevation (NSTEMI) myocardial infarction; I50.33 Acute on chronic diastolic (congestive) heart failure; J18.9 Pneumonia, unspecified organism; R65.21 Severe sepsis with septic shock; J96.01 Acute respiratory failure with hypoxia; N17.0 Acute kidney failure with tubular necrosis; N39.0 Urinary tract infection, site not specified; I13.0 Hypertensive heart and chronic kidney disease with heart failure and stage 1 through stage 4 chronic kidney disease, or unspecified chronic kidney disease; G93.40 Encephalopathy, unspecified; N18.30 Chronic kidney disease, stage 3 unspecified; E83.42 Hypomagnesemia; E78.5 Hyperlipidemia, unspecified; E10.51 Type 1 diabetes mellitus with diabetic peripheral angiopathy without gangrene; I25.10 Atherosclerotic heart disease of native coronary artery without angina pectoris; E83.39 Other disorders of phosphorus metabolism; F03.90 Unspecified dementia, unspecified severity, without behavioral disturbance, psychotic disturbance, mood disturbance, and anxiety; E10.22 Type 1 diabetes mellitus with diabetic chronic kidney disease; D64.9 Anemia, unspecified; Z79.4 Long term (current) use of insulin; Z79.84 Long term (current) use of oral hypoglycemic drugs; Z79.899 Other long term (current) drug therapy; Z90.710 Acquired absence of both cervix and uterus; Z90.49 Acquired absence of other specified parts of digestive tract; Z87.891 Personal history of nicotine dependence; Z95.1 Presence of aortocoronary bypass graft
CPT/HCPCS: 36140; 36247; 36415; 36430; 36600; 37221; 37224; 37232; 71045; 75625; 76770; 80048; 80053; 81001; 82728; 82803; 82948; 83036; 83540; 83550; 83605; 83735; 83880; 84100; 84145; 84466; 84484; 85007; 85018; 85025; 85610; 85730; 86885; 86900; 86901; 86920; 87040; 87081; 87088; 93005; 93971; 97161; 97530; 99152; 99153; 99285; A4314; A4620; A5200; A6258; A6449; C1725; C1752; C1760; C1769; C1876; C1894; G0378; J0282; J0696; J1171; J1644; J1815; J1938; J1956; J2003; J2020; J2250; J2270; J2470; J2543; J3010; J3490; J7030; J7040; J7042; P9016; P9045; Q9967